=== PATIENT | male | born 1975 | race Caucasian/White ===

== ENCOUNTER 2016-10-06 21:10 | Inpatient (IN) | payer MEDICARE, MEDICAID ==
[~2016-10-06] VITALS: Ht 180.3 cm; Wt 84.2 kg
--- NOTE | ~2016-10-06 | OR ---
PATIENT'S NAME: REA ZENDEJAS [facility] AGE: 41 Y [address] ROOM: [place] [address] LOCATION: GPCU ADMIT DATE: 10/06/2016 OR/Procedure Report DISCHARGE DATE: FAMILY PHYSICIAN: PHYSICIAN, UNKNOWN ATTENDING PHYSICIAN: BRENNA HIGGINBOTHAM SURGEON: Leonides Cervantes MD BILLIARD PLAYER: DATE OF PROCEDURE: 10/07/2016 PREPROCEDURE DIAGNOSIS: Suspected left lower extremity necrotizing fasciitis. POSTPROCEDURE DIAGNOSIS: Suspected left lower extremity necrotizing fasciitis. PROCEDURE: Insertion of right internal jugular venous catheter. INDICATIONS: I was requested to place a central venous catheter in this 41- year-old male, who had suspected necrotizing fasciitis in his left lower extremity. The patient had poor peripheral venous access and at the time of my arrival, the only intravenous access available was a previously placed port. DESCRIPTION OF PROCEDURE: The patient had been induced under general anesthesia. He was placed in a slight Trendelenburg position with his head turned towards the left. A Site Rite monitor was used to identify the right internal jugular vein which was found to be several centimeters deep and of equal size to the adjacent carotid artery. Appropriate skin markings were made. The neck was then sterilely prepped and a full body sterile barrier drape applied. Using an 18-gauge seeker needle, the right internal jugular vein was cannulated on the first attempt. A guidewire was introduced through the needle without difficulty and the needle removed. A stab incision was then created, which was followed by the passage of a dilator. A 16 cm 8.5- [place] Zealander four-lumen catheter was then threaded over the guidewire to the depth of its hub and then the guidewire was removed. After the lumens of the catheter were flushed, the catheter was sewn into place and the sterile dressing was applied. The patient tolerated the procedure well. MD KEN LINN/bayron PATIENT'S NAME: CRISTIANA [facility] AGE: 41 Y [address] ROOM: [place] [address] [facility] ADMIT DATE: 10/06/2016 OR/Procedure Report DISCHARGE DATE: FAMILY PHYSICIAN: ROSALBA BRAMBILA ATTENDING PHYSICIAN: BRENNA HIGGINBOTHAM /[id number] d: 10/07/16809 t: 10/09/16 0932, OPERATIVE SUMMARY
--- NOTE | ~2016-10-06 | HP ---
PATIENT'S NAME: DANIAL ZENDEJAS [facility] AGE: 41 Y [address] ROOM: [place] [address] LOCATION: GPCU ADMIT DATE: 10/06/2016 History & Physical DISCHARGE DATE: FAMILY PHYSICIAN: PHYSICIAN, UNKNOWN ATTENDING PHYSICIAN: BRENNA HIGGINBOTHAM DATE OF SERVICE: CHIEF COMPLAINT: Left leg redness. HISTORY OF PRESENT ILLNESS: A 41-year-old gentleman, resident of [facility] [address] [facility] [place] with a past medical history of insulin-dependent diabetes, presented to primary care physician with a sore on his left 3rd toe almost one week ago, and he was started on antibiotics, but his condition got worse and that needed inpatient hospitalization at [facility]. He was treated there with intravenous antibiotics including vancomycin and Zosyn. During that course of the hospitalization, his creatinine bumped up to 3.1 and his white count was 34,000. A CAT scan was done today, which did show subcutaneous emphysema as well as possibility of an abscess in the left joint. He was transferred here for further medical care. On my encounter, Danial is awake and alert to himself. He denied having any pain, any headache, any trouble swallowing, any chest pain, any swelling in his leg. Due to mentally challenged, further review of systems could not be obtained. PAST MEDICAL HISTORY: Prader-Willi syndrome, insulin-dependent type 2 diabetes, hypertension, chronic hepatitis, gout, glaucoma, aniridia, hypertension, anxiety, and chronic gingivitis. PAST SURGICAL HISTORY: PowerPort placement and intra-ocular lens placement. REVIEW OF SYSTEMS: All other systems were reviewed and were negative, except what is mentioned in the HPI. CURRENT MEDICATIONS: Include: 1. Levemir 21 units in the morning, 25 in the evening. 2. Metformin 1000 mg twice daily. 3. Klonopin 0.5 mg twice daily. 4. Valtrex 1 g twice daily. 5. Allopurinol 300 mg daily. PATIENT'S NAME: DANIAL ZENDEJAS [facility] AGE: 41 Y [address] ROOM: [place] [address] LOCATION: GPCU ADMIT DATE: 10/06/2016 History & Physical DISCHARGE DATE: FAMILY PHYSICIAN: PHYSICIAN, UNKNOWN ATTENDING PHYSICIAN: BRENNA HIGGINBOTHAM 6. Amlodipine 10 mg daily. 7. Ferrous sulfate 325 mg daily. 8. Gemfibrozil 600 mg twice daily. 9. Lasix 40 mg daily. 10. Magnesium oxide 400 mg twice daily. 11. Mobic 7.5 mg twice daily. 12. Protonix 40 mg daily. 13. Actos 30 mg daily. 14. Surfak 240 mg twice daily. 15. Albuterol as needed. 16. Catapres 0.3 mg twice daily. 17. B12, 1000 mcg monthly. 18. Erythromycin ointment to both eyes at bedtime. 19. Fish oil 1000 mg twice daily. 20. DuoNeb 4 hours daily as needed. 21. Risperidone 1 mg twice daily. 22. Zoloft 100 mg twice daily. 23. BuSpar 10 mg two tablets three times daily. 24. Depakote 500 mg twice daily. 25. Humalog insulin per sliding scale. 26. MiraLax 17 g daily. ALLERGIES: THE PATIENT IS ALLERGIC TO COGENTIN AND IMIPRAMINE. THERE IS QUESTIONABLE HISTORY OF AUGMENTIN ALLERGY, BUT HE HAS BEEN GETTING TREATMENT WITH ZOSYN. SOCIAL HISTORY: He lives in [facility]. No smoking or alcohol use. FAMILY HISTORY: Could not be obtained because of the patient's mental condition. Family history is not relevant to the current disease process. PHYSICAL EXAMINATION: VITAL SIGNS: Blood pressure 153/81, 72, 16, afebrile. GENERAL: In no acute distress. Alert and oriented to himself only. NECK: No JVD, thyromegaly, lymphadenopathy. HEAD: Atraumatic, normocephalic. Eyes: Nonicteric. No . Oropharynx: Moist mucous membranes. CARDIOVASCULAR: S1 and S2. No murmurs, gallops, or rubs. LUNGS: Clear to auscultation bilaterally. ABDOMEN: Soft, nontender, and nondistended. Bowel sounds are present. EXTREMITIES: Left extremity showed diffuse severe erythema extending from the foot to above the knee. Multiple recent purulence and scabs noted. There is +3 extremity edema. As compared to the left, the right extremity did not PATIENT'S NAME: DANIAL ZENDEJAS [facility] AGE: 41 Y [address] ROOM: [address] [address] LOCATION: GPCU ADMIT DATE: 10/06/2016 History & Physical DISCHARGE DATE: FAMILY PHYSICIAN: PHYSICIAN, UNKNOWN ATTENDING PHYSICIAN: BRENNA HIGGINBOTHAM reveal any such findings. PSYCHIATRIC: Cannot be assessed at this point. SKIN: As mentioned above, extensive erythema noted in the left. Otherwise, no bruises noted. MUSCULOSKELETAL: Left knee joint is swollen, but not tender to touch or passive or active range of motion. LABORATORY DATA: Labs done on arrival to [facility] showed glucose of 136, BUN 14, creatinine 1.0, sodium 144, potassium 4.0, chloride 109, bicarb 26, calcium 9.8, albumin 2.4, phosphorus 3.1, anion gap of 39, and GFR greater than 30. A CAT scan of the lower extremity was done on 10/06/2016 at the outside facility that did show 1.5 x 7.7 x 8.1 peripherally enhancing gas and fluid collection in the subcutaneous tissue at the anterior aspect of the knee, likely representing abscess superficial to the patellar tendon and proximal tibia without intra-articular involvement. This is surrounding skin thickening, likely representing cellulitis. In addition, there is no evidence of intraarticular involvement, tendon tear, fracture, osteomyelitis, and no joint effusion noted. Culture report did not reveal any specific organism. Lab work from the outside facility on 10/05/2016 showed white count of 13, hemoglobin of 11, and platelets of 291. We are going to repeat these labs here. Lactic acid was also negative at the outside facility. ASSESSMENT: 1. Left leg cellulitis. 2. Insulin-dependent diabetes. 3. Hypertension. 4. Mental retardation. PLAN: We are going to admit this patient for IV antibiotics and continue with vancomycin and Zosyn. Limb elevation is critical in treating the cellulitis. Given he has subcutaneous emphysema now, he needs to proceed with the surgery urgently and Dr. Del Cid is going to do that. On evaluation for his preop risk of cardiovascular event, his RSRI score is 1, which predisposes him to 0.9% adverse cardiovascular events during the surgery. This is a low-risk surgery and has to be undertaken urgent. We would recommend going ahead and proceeding with the surgery per AHA guidelines. We will start him on Levemir 20 units b.i.d. along with sliding scale insulin. At this point, IV labetalol for blood pressure control. We will take over the care of this patient once the patient is back from the surgery. SCDs in the morning for DVT prophylaxis. We will follow along. PATIENT'S NAME: DANIAL ZENDEJAS [facility] AGE: 41 Y [address] ROOM: [address] [address] [facility] AD[facility] DATE: 10/06/2016 History & Physical DISCHARGE DATE: FAMILY PHYSICIAN: PHYSICIAN, UNKNOWN ATTENDING PHYSICIAN: BRENNA HIGGINBOTHAM Thank you for involving us in the care of this patient. BRENNA HIGGINBOTHAM MD ANJUM/modl /[id number] D: [id number] T: [id number] HISTORY & PHYSICAL
--- NOTE | ~2016-10-06 | OR ---
PATIENT'S NAME: REA ZENDEJAS [facility] AGE: 41 Y [address] ROOM: [place] [address] LOCATION: GPCU ADMIT DATE: 10/06/2016 OR/Procedure Report DISCHARGE DATE: FAMILY PHYSICIAN: PHYSICIAN, UNKNOWN ATTENDING PHYSICIAN: BRENNA HIGGINBOTHAM SURGEON: Adria Del Cid MD OPTICAL ENGINEERING TECHNICIAN: None. DATE OF PROCEDURE: 10/06/2016 PREOPERATIVE DIAGNOSES: 1. Left knee septic prepatellar bursitis. 2. Diffuse left lower extremity cellulitis. POSTOPERATIVE DIAGNOSES: 1. Left knee septic prepatellar bursitis. 2. Diffuse left lower extremity cellulitis. PROCEDURE PERFORMED: Irrigation and debridement of left knee septic prepatellar bursa. ANESTHESIA: General endotracheal anesthesia. ESTIMATED BLOOD LOSS: Less than 10 mL. TOURNIQUET TIME: 0 minutes. SPECIMEN: Aerobic and anaerobic cultures from septic prepatellar bursa fluid. COMPLICATIONS: None. INDICATION FOR PROCEDURE: Mr. Zendejas is a 41-year-old, cognitively impaired male, resident of [facility], who has been on intravenous antibiotics for a left lower extremity infection at an outlying institution ([facility]) since September 29. He is referred urgently this evening due to progression of his left lower extremity infection, whereas there was initial improvement on intravenous antibiotics (over the first several days), his condition has been worsening and fluctuance was noted anterior to the knee today. He was initially evaluated by a local orthopedic surgeon in [place] (Dr. Skaggs) who expressed significant concern over the appearance of the knee and leg and did not feel comfortable taking care of it locally. He was therefore transferred here urgently. He has been hemodynamically stable. Informed consent has been granted by the patient's mother (who is his power of staff attorney). She understands that this is a preliminary procedure and that further procedures may very well be warranted. Arrangements have also been made to take the patient from the operating room PATIENT'S NAME: REA ZENDEJAS [facility] AGE: 41 Y [address] ROOM: [place] [address] LOCATION: GPCU ADMIT DATE: 10/06/2016 OR/Procedure Report DISCHARGE DATE: FAMILY PHYSICIAN: PHYSICIAN, UNKNOWN ATTENDING PHYSICIAN: BRENNA HIGGINBOTHAM A to MRI (due to foot) to exclude underlying osteomyelitis and/or additional abscesses in the left leg (due to the extent of diffuse erythema, swelling, and recalcitrance to intravenous antibiotics). The patient's past medical history is significant for ldf-[id number] diabetes mellitus. DESCRIPTION OF PROCEDURE: The patient was positioned supine after administration of general endotracheal anesthesia. Photographs of the left knee and left calf were obtained. The left lower extremity was prepped and draped with vigilant sterile technique. A well-padded pneumatic tourniquet had been placed around the left proximal thigh, but this was not used during the operation. Examination under anesthesia demonstrated subcutaneous fluctuance directly anterior to the patellar tendon and patella. There was a 3 x 5 cm eschar over the medial aspect of the knee (not directly overlying the area of fluctuance). The area of fluctuance was confined to the prepatellar bursa region. There was no associated effusion. A 3 cm longitudinal midline incision was made directly over the center of fluctuance anterior to the patella. There was an abundant amount of purulent fluid with significant associated malodor. This fluid was sent for aerobic and anaerobic cultures. There was a large amount of amorphous debris within the prepatellar bursa. This was debrided bluntly. Palpation of the subcutaneous fluid collection demonstrated that it propagated approximately 4 cm medially and approximately 8 cm laterally (tracking subcutaneously toward the fibular head). The cavity was irrigated with several 100 mL of sterile saline containing bacitracin. There was significant malodor. The cavity was packed with 1/2-inch iodoform gauze and sterilely dressed with 4x4 gauze followed by ABD pads and an Mina wrap. The prepatellar bursa demonstrated no communication with the joint space. The patient was transported to the MRI unit in stable condition. MD GIULIA BRISENO/bayron /[id number] d: 10/07/16 0838 t: 10/20/16 0754, OPERATIVE SUMMARY
--- NOTE | ~2016-10-06 | OR ---
PATIENT'S NAME: RAE ZENDEJAS [facility] AGE: 41 Y [address] ROOM: [address] [address] [place] [facility] [place]MIT DATE: 10/06/2016 OR/Procedure Report DISCHARGE DATE: FAMILY PHYSICIAN: Charly Rainey ATTENDING PHYSICIAN: BRENNA HIGGINBOTHAM SURGEON: Andres Vega MD PLUGGER: DATE OF PROCEDURE: 10/10/2016 ADDENDUM: No skin or soft tissue was debrided at the time of this procedure. ANDRES VEGA MD JMW/modl /[id number] d: 11/05/16 0029 t: 11/10/16 0720, OPERATIVE SUMMARY
--- NOTE | ~2016-10-06 | OR ---
PATIENT'S NAME: REA ZENDEJAS [facility] AGE: 41 Y [address] ROOM: [place] [address] LOCATION: GPCU ADMIT DATE: 10/06/2016 OR/Procedure Report DISCHARGE DATE: FAMILY PHYSICIAN: Charly Rainey ATTENDING PHYSICIAN: BRENNA HIGGINBOTHAM SURGEON: Adria Del Cid MD PATTERN SETTER: DATE OF PROCEDURE: 10/10/2016 PREOPERATIVE DIAGNOSIS: Status post irrigation and debridement of left knee septic prepatellar bursitis with associated subcutaneous abscess. POSTOPERATIVE DIAGNOSIS: Status post irrigation and debridement of left knee septic prepatellar bursitis with associated subcutaneous abscess. PROCEDURE PERFORMED: Irrigation of left septic prepatellar bursa (subcutaneous anterior knee abscess) with application of closed suction device (wound VAC). ANESTHESIA: General. ESTIMATED BLOOD LOSS: Less than 5 mL. DRAINS: None. SPECIMEN: None. COMPLICATIONS: None. TOURNIQUET TIME: 0 minutes. INDICATION FOR PROCEDURE: Mr. Zendejas is a 41-year-old male who was taken back to the operating room for removal of packing and anticipated application of wound VAC for a septic prepatellar bursa. He has previously undergone a primary irrigation and debridement and the secondary packing change. This is his 3rd operation for this condition. Informed consent has been granted by his mother. DESCRIPTION OF PROCEDURE: The patient was positioned supine. General anesthesia was administered. The left lower extremity was prepped and draped with vigilant sterile technique after the dressing and packing was removed from the anterior aspect of the left knee. The anterior knee wound measures 3 cm in length by 1 cm wide. There was no residual purulence around the packing that was removed. There was a small amount of serosanguineous fluid in the prepatellar bursa. The subcutaneous cavity tracts 2 cm medially, 2 cm PATIENT'S NAME: REA ZENDEJAS [facility] AGE: 41 Y [address] ROOM: [place] [address] LOCATION: GPCU ADMIT DATE: 10/06/2016 OR/Procedure Report DISCHARGE DATE: FAMILY PHYSICIAN: Charly Rainey ATTENDING PHYSICIAN: BRENNA HIGGINBOTHAM distally, and 8 cm posterolaterally. The wound was irrigated with a 1000 mL of sterile saline containing bacitracin using a bulb syringe. There was no purulence. There was no residual malodor. A wound VAC sponge was placed into the cavity after digital palpation and direct visualization confirmed absence of communication of the subcutaneous cavity with the knee joint. Range of motion of the knee was 0-140 degrees of flexion. There was healthy granulation tissue at the anterior patella. The amount of swelling and erythema at the left calf continues to decrease. After packing the wound sponge into the cavity, the wound VAC system was applied. There were no complications. MD GIULIA BRISENO/bayron /[id number] d: 10/10/16 2356 t: 10/20/16 0758, OPERATIVE SUMMARY
--- NOTE | ~2016-10-06 | CON ---
PATIENT'S NAME: REA ZENDEJAS [facility] AGE: 41 Y [address] ROOM: [address] [address] LOCATION: [facility] ADMIT DATE: 10/06/2016 Consultation DISCHARGE DATE: FAMILY PHYSICIAN: Charly Rainey ATTENDING PHYSICIAN: BRENNA HIGGINBOTHAM DATE OF CONSULTATION: 11/03/2016 REFERRING PHYSICIAN: ANDRES VEGA MD REASON FOR CONSULT: Medication review. HISTORY OF PRESENT ILLNESS: The patient is a 41-year-old male with a history of intellectual disability, who was admitted to the hospital with septic prepatellar bursitis and left lower extremity cellulitis and presents with acute onset of confusion and agitation. The patient is a poor historian and denies all symptoms. He keeps asking to go home. Rest of history is from nursing reports and medical record reports which indicate that while the patient's baseline is unclear, he has been confused, agitated and combative throughout most of his admission. He is disoriented to time and place and does not know where he is most of the time. The patient is said to be improved since admission, but continues to have episodes of agitation and disorientation. He usually becomes increasingly agitated in the context of multiple requests to be discharged home. Yesterday, he reportedly threw his lunch stray at a member of staff. The patient has been receiving as needed haloperidol and lorazepam with good response. He was said to be on psychotropic polypharmacy prior to this admission with no clear indications and some of his medications have been discontinued. PAST MEDICAL HISTORY: The patient has a history of Prader-Willi syndrome with intellectual disability, insulin-dependent diabetes, chronic hepatitis, hypertension, gout, glaucoma, chronic gingivitis, and hernia repair. His previous psychiatric history is unclear. MEDICATIONS: The patient's medications include, 1. Cymbalta 60 mg twice daily. 2. Luvox 100 mg twice daily. 3. Depakote 500 mg t.i.d. 4. BuSpar 20 mg t.i.d. 5. Geodon 40 mg daily. 6. Clonazepam 0.5 mg at bedtime. 7. Clonazepam 1 mg twice daily. PATIENT'S NAME: REA ZENDEJAS [facility] AGE: 41 Y [address] ROOM: [place] [address] LOCATION: [facility] ADMIT DATE: 10/06/2016 Consultation DISCHARGE DATE: FAMILY PHYSICIAN: Charly Rainey ATTENDING PHYSICIAN: BRENNA HIGGINBOTHAM 8. Melatonin 6 mg at bedtime. 9. Haloperidol 2 mg q.4 hourly p.r.n. 10. Lorazepam 1 mg q.4 hourly p.r.n. 11. See medication list for rest of medications. ALLERGIES: IMIPRAMINE, AMOXICILLIN, BENZTROPINE. PAST FAMILY AND SOCIAL HISTORY: This is unclear since the patient is unable to give a history, although records revealed that he lives in [facility]. He has no history of substance abuse and his family history is unknown at this time. REVIEW OF SYSTEMS: Unable to complete. MENTAL STATUS EXAMINATION: The patient is in bed. He is cooperative, but does not engage in the interview. He makes poor eye contact. He is not agitated. His speech is slurred. His mood is irritable with appropriate affect. He has poverty of thought content and he is somewhat concrete. He is alert and oriented to person, somewhat to place, but not to time. His concentration is impaired and is difficult to assess his memory. He denies hallucinations and no delusions are noted at the interview. His intelligence is below average. His insight and judgment are impaired. DIAGNOSES: 1. Delirium due to multiple etiologies, resolving. 2. Moderate intellectual disability. PLAN: The patient remains on psychotropic polypharmacy. Recommend rechecking valproic acid level, taper and discontinue the Luvox and Geodon. Continue Cymbalta, haloperidol, and lorazepam. Monitor the patient for response and adverse effects and review as appropriate. Thank you for your consult. MD JASMEET MUELLER/bayron PATIENT'S NAME: REA ZENDEJAS [facility] AGE: 41 Y [address] ROOM: [place] [address] LOCATION: [facility] ADMIT DATE: 10/06/2016 Consultation DISCHARGE DATE: FAMILY PHYSICIAN: Charly Rainey ATTENDING PHYSICIAN: BRENNA HIGGINBOTHAM /[id number] d: 11/03/16 1100 t: 11/03/16 1456, CONSULTATION REPORT
--- NOTE | ~2016-10-06 | OR ---
PATIENT'S NAME: REA ZENDEJAS [facility] AGE: 41 Y [address] ROOM: [address] [address] LOCATION: [facility] ADMIT DATE: 10/06/2016 OR/Procedure Report DISCHARGE DATE: FAMILY PHYSICIAN: Charly Rainey ATTENDING PHYSICIAN: BRENNA HIGGINBOTHAM SURGEON: Andres Vega MD SMALL BUSINESS CONSULTANT: DATE OF PROCEDURE: 10/06/2016 ADDENDUM: This is an addendum to the operative note from October 06. It should be noted that the size of the subcutaneous area debrided, measured approximately 8 cm x 10 cm. ANDRES VEGA MD JMW/modl /[id number] d: 11/05/16 0021 t: 11/10/16 0716, OPERATIVE SUMMARY
--- NOTE | ~2016-10-06 | DS ---
PATIENT'S NAME: REA ZENDEJAS [facility] AGE: 41 Y [address] ROOM: [address] [place], [place] [address] LOCATION: GPCU ADMIT DATE: 10/06/2016 Discharge Summary DISCHARGE DATE: 11/11/2016 FAMILY PHYSICIAN: Charly Rainey ATTENDING PHYSICIAN: Merrill Ruiz PRINCIPAL DIAGNOSES: 1. Septic left prepatellar bursitis, status post I and D x2. 2. Left leg cellulitis. 3. Prader-Willi syndrome. 4. Type 2 diabetes. 5. Aspiration pneumonia. 6. Agitation. HOSPITAL COURSE: This is a 41-year-old male with a known history of Prader- Willi syndrome, and is a resident of [facility], presented with left leg pain, cellulitis, and was later found to have a septic left prepatellar bursitis with abscess. Surgical consultation was done and the patient was seen by Surgery from Ortho and had incision and drainage of the abscess site twice. The patient also had cellulitis of the left leg as well and this was treated with IV antibiotics during his hospital stay. The patient from the infection point of view has done well. The patient continues to have dressing changes and wound care of the site. The patient is now able to ambulate and apply pressure on his leg. The patient of note has walked 30 feet today. He is to follow up with Ortho in 1 week post discharge to follow up on wound site. The patient is known to be of an aspiration risk, was also treated for aspiration pneumonia during his hospital stay. The patient is to continue to exercise aspiration precautions and only use thickened liquids going forward. The patient had received IV Zosyn for treatment of aspiration pneumonia during his hospital stay and I will discharge him on 5 more days of Augmentin to finish the antibiotic course for this. As far as his diabetes, blood sugars have been labile during his hospital stay. At this point, I have simplified his insulin regimen to include 6 to 7 units of mealtime insulin in addition to his long-acting b.i.d. Levemir. The patient today is up in a chair, appears to be lethargic but it appears that this is from the long walk that he took today, which he has done very well in. The patient overall has done well and is ready for discharge back to [facility]. The patient will follow up with Dr. Del Cid and his primary care physician, Brigid within one week. PHYSICAL EXAMINATION: GENERAL: Patient is sleepy, however, is awake and alert, at his baseline. HEART: S1, S2. Regular rate and rhythm. CHEST: Coarse breath sounds with mild crackles at the bases. ABDOMEN: Soft, nontender, nondistended. EXTREMITIES: Without edema. Left leg dressing in place and is clean, dry, PATIENT'S NAME: REA ZENDEJAS [facility] AGE: 41 Y [address] ROOM: [place] [address] LOCATION: GPCU ADMIT DATE: 10/06/2016 Discharge Summary DISCHARGE DATE: 11/11/2016 FAMILY PHYSICIAN: Charly Rainey ATTENDING PHYSICIAN: Merrill Ruiz. MEDICATIONS: Per SEP. DISPOSITION: To [facility] and to follow up with Ortho and primary care physician in one week. Greater than 30 minutes were spent in discharge planning. MD ELISABETH HORTON/modl /[id number] d: 11/12/16 0650 t: 11/16/16 1419, DISCHARGE SUMMARY
--- NOTE | ~2016-10-06 | OR ---
PATIENT'S NAME: REA ZENDEJAS [facility] AGE: 41 Y [address] ROOM: [place] [address] LOCATION: [facility] ADMIT DATE: 10/06/2016 OR/Procedure Report DISCHARGE DATE: FAMILY PHYSICIAN: Charly Rainey ATTENDING PHYSICIAN: BRENNA HIGGINBOTHAM SURGEON: Adria Del Cid MD STRATEGIC PLANNING ANALYST: DATE OF PROCEDURE: 10/08/2016 ADDENDUM: It should be noted that no skin was debrided. A 5 x 3 cm region of semi-organized hematoma was debrided. MD GIULIA BRISENO/bayron /[id number] d: 11/05/16 0027 t: 11/10/16 0718, OPERATIVE SUMMARY
--- NOTE | ~2016-10-06 | CON ---
PATIENT'S NAME: REA ZENDEJAS [facility] AGE: 41 Y [address] ROOM: [place] [address] LOCATION: GPCU ADMIT DATE: 10/06/2016 Consultation DISCHARGE DATE: FAMILY PHYSICIAN: Charly Rainey ATTENDING PHYSICIAN: BRENNA HIGGINBOTHAM DATE OF CONSULTATION: 10/09/2016 REFERRING PHYSICIAN: Dr. Mena. REASON FOR CONSULTATION: Groin rash. HISTORY OF PRESENT ILLNESS: This is a 41-year-old male patient who was admitted to the [facility] with left lower extremity cellulitis. I am familiar with the patient as I did see him down in outpatient [facility] on 09/24/2016. At that time, I was treating a left third toe diabetic foot ulcer with Iodosorb gel. That day, the patient was noted to have left lower extremity cellulitis and knee edema. I started him on a course of Keflex and performed an x-ray to rule out effusion or fracture. The patient was admitted to [facility] on 10/06/2016 with left knee septic prepatellar bursitis and left lower extremity cellulitis. He has undergone 2 left knee I and D's by Dr. Del Cid. The patient is currently being followed by ID, he is on clindamycin, Zosyn, and vancomycin. He has a significant history of Prader-Willi syndrome, type 2 diabetes mellitus, essential hypertension, GERD, and mood swings. He lives at [facility]. PAST MEDICAL HISTORY: Type 2 diabetes mellitus with peripheral neuropathy and insulin use, last hemoglobin A1c on August 21, 2016 was 6.4%; Prader-Willi syndrome; mentally handicapped; essential hypertension; glaucoma; GERD; mood swings; obsessive- compulsive disorder; anxiety; and gout. PAST SURGICAL HISTORY: None noted. FAMILY HISTORY: None noted. The patient is unable to report. SOCIAL HISTORY: The patient currently resides at [facility]. Per previous records, he is a nonsmoker and a nondrinker. PATIENT'S NAME: REA ZENDEJAS [facility] AGE: 41 Y [address] ROOM: [place] [address] LOCATION: GPCU ADMIT DATE: 10/06/2016 Consultation DISCHARGE DATE: FAMILY PHYSICIAN: Charly Rainey ATTENDING PHYSICIAN: BRENNA HIGGINBOTHAM ALLERGIES: AUGMENTIN, COGENTIN, AND TOFRANIL. CURRENT MEDICATIONS: Pertinent to this dictation: 1. Clindamycin IV. 2. Zosyn. 3. Vancomycin. Please refer to the medication administration record for further details. REVIEW OF SYSTEMS: Unable to complete due to the patient's mental status and lethargy. PHYSICAL EXAMINATION: VITAL SIGNS: Temperature 97.8, pulse 69, respirations 18, blood pressure 140/72, pulse oximetry 99%. Height 5 feet 11 inches and weight 101.2 kg. GENERAL: The patient is lethargic, sleeping. Difficult to arouse. He was previously given Haldol. HEENT: Head: Normocephalic, atraumatic. NECK: Supple. RESPIRATIONS: Even and unlabored. ABDOMEN: Soft and nontender. EXTREMITIES: +2 pedal pulses to the right foot. No edema noted. To left lower extremity, +2 edema noted. Bulky Mina wrap intact to left knee. Left lower extremity is red with significant yellow crusting and dryness. SKIN: Left third toe has a callus buildup, brown staining from Iodosorb gel. Area is currently closed. Capillary refill intact. Buttocks intact. Groin folds have a red rash with satellite lesions. Heels intact. Intact scabs to upper right chest. LABORATORY DATA: White blood cell count 9.2, hemoglobin 10.1, hematocrit 32.4, platelets 256. Sodium 146, potassium 4.1, chloride 112, bicarb 29, BUN 14, creatinine 0.8, glucose 150, albumin 2.2. Blood cultures are no growth to date. Wound cultures, no organisms observed. ASSESSMENT AND PLAN: Again, this is a 41-year-old male patient who was admitted to [facility] with left lower leg cellulitis. He was found to have septic prepatellar bursitis and he has undergone 2 I and Ds of his left knee. He has a significant history of Prader-Willi syndrome and type 2 diabetes mellitus. I am familiar with the patient as I saw him at [facility] on 09/24/2016. 1. 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 ROOM: [id number] [place], [place] [address] [facility]ATION[facility] ADMIT DATE: 10/06/2016 Consultation DISCHARGE DATE: FAMILY PHYSICIAN: Charly Rainey ATTENDING PHYSICIAN: BRENNA HIGGINBOTHAM. Area is currently callused. The patient can follow up with the [facility] on discharge. Currently, this area is not a priority compared to his other health concerns. 2. Left lower leg cellulitis. The patient is on IV antibiotics per Infectious Disease. I instructed nursing to keep the patient's left lower extremity elevated to waist level or higher at all times. 3. Left knee septic prepatellar bursitis, status post I and D x2. Bulky dressing intact to left knee. IV antibiotics. Ortho on board. 4. Candidiasis to groin folds. I will prescribe nystatin t.i.d. x10 days. Most likely, secondary to antibiotic therapy. A probiotic might be helpful. I would like to thank Dr. Mena for this consultation. JESSICA SINGH APRN FOR MD MICHAELA HEATH/bayron /[id number] d: 10/09/16 2223 t: 11/17/16 1937, CONSULTATION REPORT
--- NOTE | ~2016-10-06 | CON ---
PATIENT'S NAME: REA ZENDEJAS [facility] AGE: 41 Y [address] ROOM: [id number] [place], [place] [address] LOCATION: GPCU ADMIT DATE: 10/06/2016 Consultation DISCHARGE DATE: FAMILY PHYSICIAN: Charly Rainey ATTENDING PHYSICIAN: BRENNA RUIZ DATE OF CONSULTATION: 10/07/2016 REFERRING PHYSICIAN: ANDRES VEGA MD INFECTIOUS DISEASE CONSULTATION REFERRING PHYSICIAN: Brenna Ruiz MD. REASON FOR CONSULTATION: Severe left lower extremity cellulitis and septic prepatellar bursitis. HISTORY OF PRESENT ILLNESS: This is a 41-year-old gentleman with history of Prader-Willi syndrome and diabetes, who is transferred to [facility] for severe left lower extremity infection. Noted that, the patient had a left third toe chronic diabetic ulcer, has been treated and followed by wound care team. On September 24, 2016, it showed signs of infection and started on Keflex, however, not improving, so the patient then was started on IV antibiotics, IV vancomycin and Zosyn from September 29, 2016. Initially improved but now he is getting worse, and then his knee, thigh, and lower extremity had acquired an infection with some skin sloughing and eschar, so the patient was transferred to [facility], seen by Ortho, and then CT scan showed subcutaneous emphysema as well as possibility of abscess in the left joint. The patient had an emergent I and D done today, showed that quite significant prepatellar bursitis and abscess, status post I and D, but noted that there was no connection with knee joint. Then, the patient had an MRI done of the left lower extremity, which is still pending. He is currently on IV vancomycin and Zosyn. ID consultation is requested for antibiotic management. The patient is confused, so cannot obtain detailed history. PAST MEDICAL HISTORY: Prader-Willi syndrome, diabetes, hypertension, hepatitis, gout, glaucoma, hypertension. PAST SURGICAL HISTORY: PowerPort placement. CURRENT MEDICINES: IV Zosyn and Vancomycin antibiotic quintanilla. PATIENT'S NAME: REA ZENDEJAS [facility] AGE: 41 Y [address] ROOM: [id number] [place], [place] [address] LOCATION: GPCU ADMIT DATE: 10/06/2016 Consultation DISCHARGE DATE: FAMILY PHYSICIAN: Charly Rainey ATTENDING PHYSICIAN: BRENNA RUIZ ALLERGIES: ALLERGIC TO COGENTIN AND IMIPRAMINE. SOCIAL HISTORY: No smoking or alcohol. FAMILY HISTORY: Noncontributory. REVIEW OF SYSTEMS: Unobtainable because the patient is confused. PHYSICAL EXAMINATION: VITAL SIGNS: Blood pressure 172/96, pulse rate 87, respirations 18, temperature 97.4. No fever since admission. GENERAL: Confused. HEENT: Conjunctivae pink. Sclerae not icteric. NECK: Supple. LUNGS: Clear to auscultation bilaterally. HEART: Regular rhythm and rate. ABDOMEN: Bowel sounds positive. No tenderness or rebound tenderness. BACK AND EXTREMITIES: Left lower extremity, ignacio area is quite a necrotic skin and also erythema and warmth. Knee is dressed and also erythema noted on the left thigh area with some warmth too. SKIN: No general rash noted. LABORATORY DATA: White blood cell 13.3, hemoglobin 10.7, platelet 280. Chemistry: BUN 17, creatinine 1.0. Left knee OR culture, Gram staining, no organisms seen. Culture pending. On October 07, 2016, left lower extremity ankle and extremity MRI taken but reading pending. On october 07, 2016, chest x-ray, no acute illness. ASSESSMENT AND PLAN: This is a 41-year-old gentleman with diabetes, who presented with severe left lower extremity cellulitis and questionable necrotizing fasciitis and also left septic prepatellar bursitis, status post I and D. MRI done, still pending. The patient's at least vital signs are stable. No fever noted but leukocytosis noted. Clinically, there is quite cellulitis with some skin necrosis noted too. RECOMMENDATIONS: We will continue IV Zosyn and vancomycin, but we will add IV clindamycin 900 q.8 hours. Further I and D per ortho, and we will check blood culture x2. ID PATIENT'S NAME: REA ZENDEJAS [facility] AGE: 41 Y [address] ROOM: [id number] [place], [place] [address] LOCATION: GPCU ADMIT DATE: 10/06/2016 Consultation DISCHARGE DATE: FAMILY PHYSICIAN: Charly Rainey ATTENDING PHYSICIAN: BRENNA RUIZ will see in 1 week. MD ROGELIO GANNON/bayron /[id number] d: 10/07/16 2203 t: 10/08/16 0910, CONSULTATION REPORT
--- NOTE | ~2016-10-06 | OR ---
PATIENT'S NAME: REA ZENDEJAS [facility] AGE: 41 Y [address] ROOM: [place] [address] LOCATION: GPCU ADMIT DATE: 10/06/2016 OR/Procedure Report DISCHARGE DATE: FAMILY PHYSICIAN: Charly Rainey ATTENDING PHYSICIAN: BRENNA HIGGINBOTHAM SURGEON: Adria Del Cid MD DIRECTOR OF CLINICAL SERVICES: None. DATE OF PROCEDURE: 10/08/2016 PREOPERATIVE DIAGNOSIS: Status post irrigation and debridement of septic left prepatellar bursa. POSTOPERATIVE DIAGNOSIS: Status post irrigation and debridement of septic left prepatellar bursa. PROCEDURE PERFORMED: Repeat irrigation and debridement of septic left prepatellar bursa with packing change of left anterior knee wound. ANESTHESIA: General endotracheal anesthesia. ESTIMATED BLOOD LOSS: Less than 10 mL. SPECIMEN: Culture of prepatellar bursa. TOURNIQUET TIME: 0 minutes. INDICATION FOR PROCEDURE: Mr. Zendejas is a 41-year-old male with Prader-Willi syndrome, who underwent irrigation and debridement of a septic left knee prepatellar bursa earlier this week. The wound was left open and packed with iodoform gauze at the time of the previous procedure. The patient was taken back to the operating room presently for secondary irrigation and debridement. An MRI has been obtained in the meantime which suggested the potential for an additional posterolateral subcutaneous area of loculated fluid. Informed consent has been granted by the patient's mother. She understands that further irrigation and debridement and additional packing changes may be necessary. Informed consent granted. DESCRIPTION OF PROCEDURE: The patient was positioned supine after administration of general endotracheal anesthesia. The dressing was removed from the left knee. Packing was removed. The packing was partially saturated with purulent fluid. The amount of erythema and swelling of the left knee and left calf had decreased significantly. The left lower extremity was prepped and draped with vigilant sterile technique. No tourniquet was used. Digital palpation of the prepatellar bursa cavity again demonstrated that the cavity tracked posterolaterally. Digital palpation was utilized to be certain that PATIENT'S NAME: REA ZENDEJAS [facility] AGE: 41 Y [address] ROOM: [place] [address] LOCATION: GPCU ADMIT DATE: 10/06/2016 OR/Procedure Report DISCHARGE DATE: FAMILY PHYSICIAN: Charly Rainey ATTENDING PHYSICIAN: BRENNA HIGGINBOTHAM there were no areas of loculated fluid. There was no residual malodor. Semiorganized hematoma was debrided. No skin was debrided. The subcutaneous fluid cavity (including areas where it tracked medially, laterally, posteriorly, distally laterally) were irrigated with several 100 mL of sterile saline containing bacitracin. The wound was subsequently packed with half- inch iodoform gauze. The wound was dressed with 4 x 4 gauze, followed by ABD pads, and an Mina wrap. There were no complications. MD GIULIA BRISENO/bayron /[id number] d: 10/09/16 0200 t: 10/20/16 0756, OPERATIVE SUMMARY
--- NOTE | ~2016-10-06 | CON ---
PATIENT'S NAME: REA ZENDEJAS [facility] AGE: 41 Y [address] ROOM: [id number] [place], [place] [address] LOCATION: GPCU ADMIT DATE: 10/06/2016 Consultation DISCHARGE DATE: FAMILY PHYSICIAN: PHYSICIAN, UNKNOWN ATTENDING PHYSICIAN: BRENNA HIGGINBOTHAM REFERRING PHYSICIAN: ANDRES VEGA MD HISTORY OF PRESENT ILLNESS: Mr. Zendejas is a 41-year-old male, [facility] resident with Prader-Willi syndrome, who is transferred from [facility] due to progression of a left lower extremity infection. The patient was admitted to [facility] on approximately September 29 with left knee swelling and erythema involving the left knee and left ignacio. It should be noted that history is obtained via Moreno Rainey PA-C (who has been caring for the patient at [facility]) as well as via the patient's mother, Lucy. Lucy's telephone number is . Lucy last saw her son approximately 3 weeks ago, at which point she noted swelling at his left knee. She states that he has arthritis in the knee and that she encouraged his caregivers at [facility] to "take him in to get a shot." He was reportedly taken to the hospital a few days later and immediately admitted for intravenous antibiotics by Moreno Rainey PA-C. Moreno informs me that the patient's left lower extremity erythema and white blood cell count steadily improved during the first week of his admission. However, he states that the patient has developed a breakthrough erythema and swelling (particularly at the knee) over the past few days. Moreno noted significant fluctuance at the anterior aspect of the left knee today. He attempted to further evaluate this with an MRI, but there was significant motion artifact (due to the patient's baseline compromised mental status). A CT scan was obtained instead. The CT scan reportedly demonstrated no effusion, but there was a large amount of prepatellar swelling including prepatellar gas. Moreno had attempted to aspirate the prepatellar fluctuant area prior to the CT scan, but only bloody fluid was obtained. Lucy states that there was no known precipitating trauma but that Rea falls frequently. He is legally blind and uses a walker at baseline. She informs me that Rea has an extremely high pain tolerance. ACTIVE MEDICAL PROBLEMS: Include Prader-Willi syndrome and kic-viwvwfg-jedsdcklz diabetes mellitus. REVIEW OF SYSTEMS: Moreno informs me that the patient has been demonstrating no evidence of septicemia. PHYSICAL EXAMINATION: PATIENT'S NAME: REA ZENDEJAS [facility] AGE: 41 Y [address] ROOM: [place] [address] LOCATION: GPCU ADMIT DATE: 10/06/2016 Consultation DISCHARGE DATE: FAMILY PHYSICIAN: PHYSICIAN, UNKNOWN ATTENDING PHYSICIAN: BRENNA HIGGINBOTHAM GENERAL: The patient is alert, but his cognitive status precludes his ability to provide any significant history. EXTREMITIES: He actively dorsiflexes and plantarflexes his left ankle to command with no evident discomfort. There is a significant amount of edema throughout the left foot, but there is no erythema, tenderness, or fluctuance at the left foot. There is erythema and edema throughout the left ignacio and calf, but there is no fluctuance. There is a Telfa gauze dressing adherent to the skin of the posterior calf, but there is no full thickness skin necrosis. There is extensive circumferential dry skin flaking off the ignacio and calf. There is extensive subcutaneous fluctuance at the anterior aspect of the left knee with an approximately 3 x 5 cm eschar at the medial patella. There is no active drainage. There is moderate edema at the left thigh, but no significant tenderness or fluctuance at the left thigh. Dorsalis pedis and posterior tibial pulses are both positive by Doppler on the left. RADIOGRAPHS: Plain radiographs of the left knee, tibia, and fibula are pending. I have also ordered a MRI (under anesthesia) of the left knee and calf (to exclude underlying osteomyelitis). IMPRESSION: Septic prepatellar bursitis, left knee with associated skin necrosis. Potential underlying osteomyelitis and/or septic arthritis. Diffuse cellulitis of left calf. Lob-libdxmp-aybwpplbf diabetes mellitus. RECOMMENDATIONS: Imaging studies as specified above. We will take the patient to the operating room (as soon as he is cleared to do so by the Internal Medicine team) for incision, drainage, irrigation, and debridement of the prepatellar bursitis. Empiric antibiotics will be continued. I have discussed risks, benefits, limitations, and alternatives to this procedure with the patient's mother (who is his power of patent prosecution attorney) and informed consent has been granted. She understands that this is anticipated to be the first in a series of several operations. We will consider placing a wound VAC. Cultures will be obtained, and antibiotics will be adjusted accordingly. All the patient's mother's questions and concerns were answered to her satisfaction. ANDRES VEGA MD PATIENT'S NAME: REA ZENDEJAS [facility] AGE: 41 Y [address] ROOM: [place] [address] [facility]: 10/06/2016 Consultation DISCHARGE DATE: FAMILY PHYSICIAN: PHYSICIAN, UNKNOWN ATTENDING PHYSICIAN: BRENNA HIGGINBOTHAM/bayron /[id number] d: 10/07/16 0538 t: 10/20/16 0751, CONSULTATION REPORT
[~2016-10-06 21:10] MED LIST: BISAC-EVAC10 MG R; BUSPIRONE HCL10 MG PO; CATAPRES0.3 MG PO; COLACE100 MG PO; CYMBALTA60 MG PO; DEPAKOTE DELAY500 MG PO; ERYTHROMYCIN 0.5% OPHTH; FEOSOL325 MG PO; FISH OIL 1,0001 EAC1 PO; GEODON80 MG PO; GLUCOPHAGE500 MG; GLUCOSE15 GM/59 M PO; HUMALOG100 UNIT/1 SUB-Q; KLONOPIN0.5 MG PO; LASIX20 MG; LEVEMIR100 UNIT/1 SUB-Q; LOPID600 MG PO; LUVOX50 MG; MELATONIN5 M2 PO; MIRALAX17 GM PO; MOBIC7.5 MG; NORVASC10 MG PO; OXYGEN M-15; PERIDEX15 ML PO; PRED FORTE 1%5 ML OPHTH; PREVIDENT 500051 GM DT; PROTONIX40 MG PO; REFRESH LIQUIGE30 ML OPHTH; ROBITUSSIN DM120 ML PO; TERBINAFINE15 GM TOP; THERAGRAN-M1 TAB PO; TRIAMCINOLONE DT; TYLENOL325 MG PO; ULTRAM50 MG PO; XOPENEX1.25 MG/3 INH; ZYLOPRIM300 MG PO; [UNRECOGNIZED DRUG - OTHER] DT; [UNRECOGNIZED DRUG - OTHER] PO
[2016-10-06 22:52] LABS: ALBUMIN 2.4 gm/dL (3.5-5.0); BLOOD UREA NITROGEN 14 mg/dL (6-24); CALCIUM 9.8 mg/dL (8.5-10.5); CHLORIDE 109 mMol/L (96-110); CO2 26 mMol/L (22-32); PHOSPHORUS 3.1 mg/dL (2.5-4.9); SODIUM 144 mMol/L (135-145)
[2016-10-06 22:53] LABS: ESTIMATED GFR (MDRD EQUATION) > 60
[2016-10-06] MEDS ORDERED: LOVENOX 4040 MG/0.4 SUB-Q (23:01)
[2016-10-06] MEDS ORDERED: LEVEMIR100 UNIT/1 SUB-Q (23:08)
[2016-10-06] MEDS ORDERED: ATIVAN 1 MG1 MG SL (23:28)
[2016-10-06] MEDS ORDERED: LORAZEPAM IV (23:29)
[2016-10-06] MEDS ORDERED: VANCOMYCIN1 GM IV (23:31)
[2016-10-06] MEDS ORDERED: ZOSYN3.375 GM IV (23:32)
[2016-10-06 23:34] LABS: BASOPHIL # 0.1 K/uL (0.0-0.2); BASOPHIL % 0.6 %; EOSINOPHIL # 0.2 K/uL (0.0-0.5); EOSINOPHIL % 0.9 %; HEMOGLOBIN 11.3 g/dL (12.0-17.0); IMMATURE GRANULOCYTE # 0.1 K/uL (0.0-0.3); IMMATURE GRANULOCYTE % 0.4 %; LYMPHOCYTE # 2.8 K/uL (0.8-4.0); LYMPHOCYTE % 16.5 %; MCH 27.6 pg (27.0-34.0); MCHC 31.4 gm/dL (32.0-36.5); MONOCYTE # 1.6 K/uL (0.0-1.0); MONOCYTE % 9.6 %; MPV 11.6 fl (9.4-12.4); NEUTROPHIL # (ANC) 12.3 K/uL (1.4-9.0); NRBC % 0 /100WBC (0-0.00); RBC 4.09 M/uL (4.00-6.00); RDW-CV 15.3 % (11.9-14.6)
[2016-10-06 23:36] LABS: PLATELET COUNT 293 K/uL (150-450); WBC 17.1 K/uL (4.0-11.0)
[2016-10-06] MEDS ORDERED: HEPARIN LO IV (23:36)
[2016-10-06] MEDS ORDERED: HALDOL5 MG/1 ML IV (23:38)
[2016-10-06] MEDS ORDERED: DEXTROSE 50%50 ML IV (23:39)
[2016-10-06] MEDS ORDERED: GLUCAGON 1 MG PE1 MG SUB-Q (23:47)
--- NOTE | 2016-10-07 04:25 | NUR ---
THE PATIENT RESIDES AT [facility]. A FEW WEEKS AGO HE APPEARED TO HAVE WHAT WAS A DIABETIC FOOT ULCER ON HIS 3RD TOE OF THE LEFT FOOT. HE WAS TREATED FOR THIS WITH ANTIBIOTICS. HE THEN DEVELOPED LEFT LOWER LEG CELLULITIS AND WAS TREATED WITH KEFLEX. AFTER A FEW DAYS HE DID NOT IMPROVED. HIS LEG DEVELOPED AN ABCESS AROUND THE KNEE AND HAS MULTIPLE OPEN SORES WOUNDS AND EXCORIATION ALONG WITH REDNESS AND +4 EDEMA. HE WAS TAKEN DIRECTLY TO THE OR WHERE AN I&D WAS PERFORMED WITH CULTURES TAKEN BY DR. VEGA. HE ARRIVED ON PCU AT 0330 VIA CART. A/0 TO ONLY PERSON DUE TO COGNITIVE IMPAIRMENT. VSS. LEG ELEVATED WITH JACKLYN WRAPS COVERING OTHER DRESSINGS OVER WOUND. VANCO AND ZOSYN INFUSING. HX: PRADER-WILLI SYNDROME, DIABETES, HTN, CHRONIC HEPATITIS, GOUT , GLAUCOMA, ANIRIDIA, HTN, ANXIETY.
--- NOTE | 2016-10-07 07:25 | NUR ---
Significant Event: PATIENT HAS BECOME MORE ALERT THE SHIFT HAS PROGRESSED. HE CAN EXPRESS HIS WISHES NOW. LEFT LOWER EXTREMITY REMAINS ELEVATED. ZOSYN INFUSING, HE DENIES PAIN AT THIS TIME AND CAN MOVE ALL EXTREMETIES Follow up:
[2016-10-07 07:51] LABS: BASOPHIL # 0.1 K/uL (0.0-0.2); BASOPHIL % 0.5 %; EOSINOPHIL # 0.1 K/uL (0.0-0.5); EOSINOPHIL % 0.5 %; HEMATOCRIT 34.9 % (37.0-53.0); HEMOGLOBIN 10.7 g/dL (12.0-17.0); IMMATURE GRANULOCYTE % 0.2 %; LYMPHOCYTE # 1.9 K/uL (0.8-4.0); LYMPHOCYTE % 14.1 %; MCH 27.4 pg (27.0-34.0); MCHC 30.7 gm/dL (32.0-36.5); MCV 89.5 fl (83.0-98.0); MONOCYTE % 7.1 %; MPV 11.3 fl (9.4-12.4); NEUTROPHIL # (ANC) 10.3 K/uL (1.4-9.0); NEUTROPHIL % 77.6 %; NRBC % 0 /100WBC (0-0.00); PLATELET COUNT 280 K/uL (150-450); RDW-CV 15.5 % (11.9-14.6); WBC 13.3 K/uL (4.0-11.0)
[2016-10-07 08:08] LABS: ANION GAP 13.4 (10.0-19.0); BLOOD UREA NITROGEN 17 mg/dL (6-24); CALCIUM 9.9 mg/dL (8.5-10.5); CHLORIDE 111 mMol/L (96-110); CO2 26 mMol/L (22-32); ESTIMATED GFR (MDRD EQUATION) > 60; POTASSIUM 4.4 mMol/L (3.7-5.1)
[2016-10-07 08:09] LABS: SODIUM 146 mMol/L (135-145)
[2016-10-07] MEDS ORDERED: MELATONIN1 MG PO (09:49)
[2016-10-07] MEDS ORDERED: SODIUM CHLORID250 M1 IV (09:49)
[2016-10-07] MEDS ORDERED: LORAZEPAM2 MG/1 M1 IV (09:50)
[2016-10-07] MEDS ORDERED: HEPARIN LO10 UNIT/1 IV (09:50)
[2016-10-07] MEDS ORDERED: PRED FORTE 1%5 ML OPHTH (09:51)
[2016-10-07] MEDS ORDERED: SALINE IV ×2 (09:51→09:52)
--- NOTE | 2016-10-07 14:47 | NUR ---
Stopped by Danial's room, he was sleeping so I didn't go in and bother him. I did review his chart, saw that he resides at [facility] in [place]. He will return there when ready for discharge. At this time, ID was consulted and he was started on 3 IV Abxs so he will be here for a bit. I did place him on the TCU list in anticipation that he might not need to be on acute care the whole time just for his IV Abxs needs. Will continue to follow and assist.
--- NOTE | 2016-10-07 16:45 | NUR ---
Significant Event: Patient is developmentally delayed and A&O to person only. Speech garbled and difficult to understand at times, but responds to voice and commands. Patient had MRI with general anesthesia this AM and drowsy upon return. He became agitated once anesthesia wore off and yelled out often, stating that he wanted to "go home". Scheduled Ativan administered. Patient is a heavy 2 person assist with gaibelt. Patient voids per urinal, with a smear BM. VS: HR 80's, SBP 140-180's, sats above 95% on room air. Slightly tachypneic. Redness noted on left medial thigh and bilateral groin creases in addition to cellulitis of left lower leg. ID consulted today. Clindamycin added to antibiotic regimine. Follow up: Continue as per plan of care. Continue IV antibiotics. To follow-up with ID in 1 week.
--- NOTE | 2016-10-08 00:34 | NUR ---
Patient resting since shift change. up to see patient written orderes for I&D . Patient NPO after breakfast. No changes in assessments. L)lower extremity red and warm to touch. IV ATB continued. IV access per R)quad-luman IJ and R)chest port. Voids per urinal but can be incontinent at times. Permits on chart for I&D. Plan is for patient to go to [facility] Wednesday if beds open per MD note.
[2016-10-08 04:30] LABS: BASOPHIL # 0.1 K/uL (0.0-0.2); EOSINOPHIL # 0.2 K/uL (0.0-0.5); EOSINOPHIL % 2.6 %; HEMATOCRIT 33.4 % (37.0-53.0); HEMOGLOBIN 10.1 g/dL (12.0-17.0); IMMATURE GRANULOCYTE % 0.2 %; LYMPHOCYTE # 2.7 K/uL (0.8-4.0); LYMPHOCYTE % 29.1 %; MCH 27.1 pg (27.0-34.0); MCHC 30.2 gm/dL (32.0-36.5); MCV 89.5 fl (83.0-98.0); MONOCYTE % 10.8 %; MPV 11.2 fl (9.4-12.4); NEUTROPHIL # (ANC) 5.2 K/uL (1.4-9.0); NEUTROPHIL % 56.3 %; NRBC % 0 /100WBC (0-0.00); PLATELET COUNT 256 K/uL (150-450); RBC 3.73 M/uL (4.00-6.00); RDW-CV 15.3 % (11.9-14.6); WBC 9.2 K/uL (4.0-11.0)
[2016-10-08 04:35] LABS: ALBUMIN 2.2 gm/dL (3.5-5.0); ALK PHOS 100 IU/L (33-138); AST 9 IU/L (10-40); BLOOD UREA NITROGEN 14 mg/dL (6-24); CALCIUM 9.7 mg/dL (8.5-10.5); CHLORIDE 112 mMol/L (96-110); CO2 29 mMol/L (22-32); CREATININE 0.8 mg/dL (0.6-1.3); ESTIMATED GFR (MDRD EQUATION) > 60; MAGNESIUM 1.8 mg/dL (1.3-2.6); PHOSPHORUS 2.5 mg/dL (2.5-4.9); POTASSIUM 4.1 mMol/L (3.7-5.1); TOTAL BILIRUBIN 0.3 mg/dL (0.0-1.5)
[2016-10-08 04:44] LABS: ALT < 10 IU/L (12-78); ANION GAP 9.1 (10.0-19.0); SODIUM 146 mMol/L (135-145)
--- NOTE | 2016-10-08 04:52 | NUR ---
Significant Event: Alert, oriented to self, believes he is in/going to [place], cooperative with cares, patient wants someone in room frequently to talk with him, SBP 130s/80s, RA, afebrile, IV fluids to R)IJ, port with good blood return, dressing changed to IJ, incontinent of urine once, mostly able to express needs, yells out at times, L) leg dressing c.d.i Follow up: I&D of L) knee today, NPO after breakfast, back to [place] Wednesday?
--- NOTE | 2016-10-08 15:12 | NUR ---
1130 Received consult to help with philomena TREJO for continued IV Abxs needs. I phoned over to [facility], talked with Monique. She states that they do have open male beds and would be happy to take a look at him. Formal referral was faxed, let her know he would be ready tomorrow if they could accept. 1515 Call to [facility] to make sure they got the fax and see if they would be able to accept tomorrow. Talked with Christina and she states that they did get the fax and took it to the team to review but they are unable to accept until at least Wednesday due to bed/staffing ratio. She asks that I call back on Wednesday and send an update at that time and then they might be able to accept him. Updated GANGA Peguero to this so she was aware. Will continue to follow and assist.
--- NOTE | 2016-10-08 17:23 | NUR ---
Significant Event: Patient disoriented to time and place most of the time. Can become very agitated very quickly because he does not understand why he has to be and cannot go home. Up with max 2 assist, walker, and gaitbelt to pivot to chair. SBP 160-180's this A.M. Gave IV Hydralazine x 1 and started PO metoprolol. LR changed to TKO rate. SBP 120-150's since. R)IJ quad lumen central line. Cathflowed white port and brown port this shift. Still do not have blood return in brown port yet. R)chest port with good blood return. Changed all caps and tubing this shift. Gave PRN Ativan on top of scheduled ativan once this morning due to increased agitation. Calls out and screams frequently. Does not use call light, but able to express needs. NPO after breakfast for I & D of left knee with Dr. Del Cid this evening. Left floor at 1720. No changes to left leg. Continues to excoriated, peeling, and edematous. Denies pain, but receives scheduled pain meds. ACHS accu checks. Follow up: Continue as per plan of care. Continue IV antibiotics.
--- NOTE | 2016-10-09 05:04 | NUR ---
Significant Event: ORIENTED TO PERSON AND PLACE. HE HAS BEEN PLEASANT AND COOPERATIVE THIS EVENING. YELL'S OUT OCCASIONALLY BUT NOT VERY OFTEN. VERBAL REASSURANCE PROVIDED AND REALLY SEEMS TO HELP. 1 PRN ATIVAN EPHRAIMN AT 0202. LEG WOUND DRESSINGS STILL C/D/I. DID MAKE 1 ATTEMPT TO GET OUT OF BED ON HIS OWN. ALL VSS HAS BEEN ON 1L 02 SINCE SURG. HE ALWAYS STATED HE DID NOT HAVE ANY PAIN EVEN WHEN PROMPTED ABOUT HIS LEG. SLEPT OFF AND ON. Follow up:
--- NOTE | 2016-10-09 11:56 | NUR ---
Talked with Dr. Mena in the hallway, let him know about [facility] not being able to accept until at least Wednesday. Also let him know that Danial was on the TCU list so once they had a bed we might be able to get him there for continued IV Abxs needs. Dr. Mena is fine with this plan. He also states that they might do another I&D down the road, but isn't for sure on that yet. Dr. Mena talked about possibly transfering him to [facility] in the next day or two. Will continue to follow and assist.
--- NOTE | 2016-10-09 19:01 | NUR ---
Significant Event: Patient agitated and combative this A.M., but has been much more cooperative and calm since haldol was given at 1115. High fall risk. Up with max 2 A to turn and pivot to chair. L)knee/leg remains unchanged. Wound care saw today. Started nystatin to groins. Incontinent of bowel and bladder today. VSS on RA. Mother came to see patient, which helped soothe the patient and make him happier. Pulled R)IJ out today. Now has R)chest port saline locked other than with antibiotics. ACHS accu checks. Turn q2h. Follow up: Continue as per plan of care. Continue IV antibiotics,
--- NOTE | 2016-10-10 04:25 | NUR ---
Significant Event: PT SLEPT MOST OF THIS SHIFT, UP APPRX 0230 IN CHAIR AND ATE SNACK AND APPROPRIATE BUT OBSESSING ABOUT LOCATION, PRN ATIVAN GIVEN. PT DENIES PAIN. DRESSING UNCHANGED THIS SHIFT, CDI TO LLE. CONT TO MONITOR.R CHEST PORT FLUSHES BUT DOES NOT DRAW, MAY BE POSITIONAL. Follow up:SWING BED PENDING
--- NOTE | 2016-10-10 17:16 | NUR ---
Significant Event: NPO THIS AM AND TO OR FOR I & D AND WOUND VAC PLACEMENT TO LT)KNEE; OFF FLOOR FROM [id number]. WAS VERY AGITATED AND YELLING OUT THIS AM AT SHIFT CHANGE FOR ABOUT AN HOUR; GAVE IV HALDOL WHICH HELPED HIM CALM DOWN. WAS UP TO RECLINER FOR A FEW HOURS THIS AM AND THEN BACK TO BED PRIOR TO GOING TO OR; WAS INCONTINENT OF URINE SEVERAL TIMES. WOUND VAC CONTINUES TO LT)KNEE AT 125 MMHG CONTINUOUS WITH MINIMAL DRAINAGE OUT; TO CALL O/C WOC RN THIS WEEKEND IF HAS LARGE AMOUNT OF OUTPUT OR OTHER ISSUES. RT)CHEST PORT FLUSHES WELL WITH GOOD BLOOD RETURN. OLD RT)IJ SITE DRESSING CHANGED D/T FALLING OFF. REPOSITIONED FREQUENTLY. IV VANCO CURRENTLY D/C'D DUE TO HIGH TROUGH-NEXT LEVEL TONITE AT 1999. Follow up: CONTINUE PLAN OF CARE.
[2016-10-10 20:40] LABS: ESTIMATED GFR (MDRD EQUATION) > 60
--- NOTE | 2016-10-11 04:35 | NUR ---
Significant Event:VSS.2L NC AT NIGHT. PT AROUSABLE, WHEN AWAKE, AGITATED AND OBSESSES BEING IN THE HOSPITAL AND WANTING TO LEAVE, MUTLIPLE ATTEMPTS TO GET OUT OF BED. PT ATE SOME DINNER W/ASSIST AND BATHED.IV ANTIBIOTICS GIVEN. ATIVAN AND HALDOL GIVEN X2. WOUND VAC TO LLE, SCANT DRAINAGE IN CANISTER Follow up:CONT WITH PLAN OF CARE
--- NOTE | 2016-10-11 15:50 | NUR ---
Significant Event: VSS AND RA. AFEBRILE. WOUND VAC TO LT) KNEE WOUND RUNNING WELL, MINIMAL DRAINAGE OUT. WAS MORE AGITATED THIS AM PRIOR TO HIS AM MEDS AND LATER THIS AFTERNOON YELLING OUT, BUT HAS NAPPED ON/OFF WITHOUT MUCH AGITATION T/O REST OF DAY; HALDOL GIVEN X2. RESTLESS AT TIMES, PULLING AT EQUIPMENT. PORT FLUSHED WELL WITHOUT BLOOD RETURN THIS AM; CATH MARLENE ACTIVASE PER PROTOCOL AND IS NOW WORKING FLUSHES WITH GOOD BLOOD RETURN. IV ABX CONTINUE. VOIDS WITH ADEQUATE UOP. Follow up: CONTINUE PLAN OF CARE.
[2016-10-12 04:22] LABS: ANION GAP 8.1 (10.0-19.0); BLOOD UREA NITROGEN 14 mg/dL (6-24); CALCIUM 10.4 mg/dL (8.5-10.5); CHLORIDE 111 mMol/L (96-110); CO2 32 mMol/L (22-32); ESTIMATED GFR (MDRD EQUATION) > 60; POTASSIUM 4.1 mMol/L (3.7-5.1)
[2016-10-12 04:23] LABS: SODIUM 147 mMol/L (135-145)
[2016-10-12 04:31] LABS: BASOPHIL # 0.1 K/uL (0.0-0.2); BASOPHIL % 1.3 %; EOSINOPHIL # 0.3 K/uL (0.0-0.5); EOSINOPHIL % 4.2 %; HEMATOCRIT 32.6 % (37.0-53.0); HEMOGLOBIN 9.8 g/dL (12.0-17.0); IMMATURE GRANULOCYTE % 0.1 %; LYMPHOCYTE # 2.8 K/uL (0.8-4.0); LYMPHOCYTE % 40.9 %; MCH 27.1 pg (27.0-34.0); MCHC 30.1 gm/dL (32.0-36.5); MCV 90.3 fl (83.0-98.0); MONOCYTE # 0.6 K/uL (0.0-1.0); MONOCYTE % 8.4 %; MPV 11.9 fl (9.4-12.4); NEUTROPHIL # (ANC) 3.1 K/uL (1.4-9.0); NEUTROPHIL % 45.1 %; NRBC % 0 /100WBC (0-0.00); PLATELET COUNT 267 K/uL (150-450); RBC 3.61 M/uL (4.00-6.00); RDW-CV 15.3 % (11.9-14.6); WBC 6.9 K/uL (4.0-11.0)
--- NOTE | 2016-10-12 04:57 | NUR ---
Significant Event:VSS.RA,SATS >90%. PT HAD A LATE DINNER AND MEDS. MAX 2 ASST. LLE WOUND VAC, 50CC OUT. DRESSING INTACT. IV ABX. PT TRYS TO GET OUT OF BED, HALDOL AND ATIVAN GIVEN X2. PT SPOKE TO MOM LAST NIGHT, REASSURANCE PROVIDED. PT CAN GET AGITATED AND OBSESS AT TIMES ABOUT HIS LOCATION. Follow up:CONT WITH PLAN OF CARE
--- NOTE | 2016-10-12 11:35 | NUR ---
Call to Monique at [facility], asked if they had any open beds. She states that she might have some but would like to see an update on Danial . I faxed her over an update so she could review it along with her medical team. She states she will review it and then get back to me on if they would be able to accept or not. Will continue to follow and assist.
--- NOTE | 2016-10-12 13:25 | NUR ---
A - NUT F/U. LLE WOUND VAC TO L) KNEE WOUND. 2-4+ EDEMA. WT DOWN D/T DECREASED EDEMA. LABS: ACCUCHECK WNL->200, NA 147, GLU 212 MEDS: SSI, LEVEMIR, CLINDAMYCIN, BOWEL, PROTONIX, ZOSYN DIET: DIABETIC. INTAKE: 0-25% KAVITA BID, GLUCERNA @ L NEEDS: [id number] KCAL, 106-127 G PRO D - INADEQUATE NUTRIENT INTAKE R/T DECREASED APPETITE AEB INTAKE RECORD. INCREASED PRO NEEDS R/T HEALING AEB LLE WOUND, WOUND VAC. I - GOAL FOR INTAKE > 50% BY NEXT ASSESSMENT. WILL ADD GLUCERNA @ B&D. M/E - WILL MONITOR INTAKE AND SKIN. F/U IN 3-5 DAYS.
--- NOTE | 2016-10-12 19:17 | NUR ---
PATIENT UP TO CHAIR W/ PHYSICAL THERAPY. SBP 160'S, REFUSED 3RD ASSESSMENT BP. PATIENT WAS AGITATED AT THAT TIME AND RECEIVED PRN HALDOL. PATIENT HAD INC STOOL AND THAT TIME AND THEN AGITATION IMPROVED. HR HIGH 50'S-60'S, SATS 95% ON RA. CONTINUED IV ANTIBIOTICS.
[2016-10-13 05:24] LABS: BASOPHIL # 0.1 K/uL (0.0-0.2); BASOPHIL % 1.6 %; EOSINOPHIL # 0.3 K/uL (0.0-0.5); EOSINOPHIL % 3.3 %; HEMATOCRIT 34.3 % (37.0-53.0); HEMOGLOBIN 10.3 g/dL (12.0-17.0); IMMATURE GRANULOCYTE % 0.2 %; LYMPHOCYTE # 3.3 K/uL (0.8-4.0); LYMPHOCYTE % 40.5 %; MCH 26.9 pg (27.0-34.0); MCV 89.6 fl (83.0-98.0); MONOCYTE # 0.8 K/uL (0.0-1.0); MONOCYTE % 9.2 %; MPV 11.9 fl (9.4-12.4); NEUTROPHIL # (ANC) 3.7 K/uL (1.4-9.0); NEUTROPHIL % 45.2 %; NRBC % 0 /100WBC (0-0.00); PLATELET COUNT 297 K/uL (150-450); RBC 3.83 M/uL (4.00-6.00); RDW-CV 15.4 % (11.9-14.6); WBC 8.2 K/uL (4.0-11.0)
--- NOTE | 2016-10-13 05:24 | NUR ---
Significant Event: PATIENT IS DISORIENTED TIME/PLACE. FOLLOWS MOST COMMANDS. PATIENT YELLS OUT FREQUENTLY WHEN AWAKE. UNABLE TO EXPRESS WHAT HE WANTS/NEEDS AT TIME. LINA ATIVAN GIVEN. IV HALDOL HELD FOR NOW UNLESS YELLING PROCEEDS. VSS. HR 50-60'S. SBP 150-180'S. AFEBRILE. 02 SATS IN MID 90'S ON 2L 02 AT NIGHT AND RA DURING DAY PER HOME 02 DOSE. LUNGS CLEAR/DIM TO DIM. UP WITH MAX 2A WITH WALKER/GB. DIDN'T HELP MUCH WHEN TRANSFERRING FROM CHAIR TO BED. BOWELS ACTIVE. INCONTINENT OF VOID AND STOOL. WOUND VAC TO LEFT LEG INTACT WRAP IN JACKLYN WRAP. RIGHT CHEST PORT WITH NS AT TKO AND INTERMITTENT IV ABX. CONTINUES TO HAVE 1-2+ EDEMA TO LOWER EXTREMITIES. Follow up: POSSIBLE DISCHARGE TODAY? CONTINUE TO MONITOR.
[2016-10-13 05:42] LABS: ALBUMIN 2.5 gm/dL (3.5-5.0); ALK PHOS 112 IU/L (33-138); ALT 13 IU/L (12-78); AST 13 IU/L (10-40); BLOOD UREA NITROGEN 18 mg/dL (6-24); CALCIUM 10.6 mg/dL (8.5-10.5); CHLORIDE 110 mMol/L (96-110); CO2 31 mMol/L (22-32); ESTIMATED GFR (MDRD EQUATION) > 60; POTASSIUM 3.9 mMol/L (3.7-5.1); TOTAL PROTEIN 7.7 g/dL (6.0-8.4)
[2016-10-13 05:46] LABS: ANION GAP 10.9 (10.0-19.0); SODIUM 148 mMol/L (135-145); TOTAL BILIRUBIN 0.2 mg/dL (0.0-1.5)
--- NOTE | 2016-10-13 10:30 | NUR ---
Diabetes consult: Patient lives at [facility] and is not a candidate for diabetes education. Blood sugars are well controlled today at 124 and 175. Will continue to monitor.
--- NOTE | 2016-10-13 12:32 | NUR ---
Called and spoke with Monique at [facility]. She says their nurse international manager reviewed the case and they are saying no, as time he requires exceeds what they normally have on SB. Will continue to look at options for patient. Will follow.
--- NOTE | 2016-10-13 17:07 | NUR ---
Significant Event: PT. ALERT TO SELF ONLY. PT. HAS BEEN AGIATED, YELLING LOUDLY THROUGHOUT THE DAY, GETS SCHEDULE ATIVAN & WAS GIVEN HALDOL X1 AT 1205. IDD TO SEE PT. TOMORROW. CONTINUES ON IV ABX'S TO RIGHT CHEST PORT. GETS SCHEDULED ULTRAM FOR PAIN. WOC CAME & DEBRIDED LEFT LEG & 3rd TOE AND CHANGED WOUND VAC TO LEFT KNEE, JACKLYN WRAP ON LEG INSTEAD OF ADRIANA HOSE, DRESSING C/D/I. ADRIANA HOSE ON TO RIGHT LEG. PT. HAS BEEN RESTING IN BED SINCE 1330, NO 3rd ASSESSMENT DONE D/T THIS. LEX DANIELLE REFUSES TO TAKE PT. INC. OF BOWEL/BLADDER. Follow up: CONTINUE WITH POC.
[2016-10-14 03:30] LABS: ANION GAP 11.6 (10.0-19.0); BLOOD UREA NITROGEN 16 mg/dL (6-24); CHLORIDE 108 mMol/L (96-110); CO2 30 mMol/L (22-32); ESTIMATED GFR (MDRD EQUATION) > 60; POTASSIUM 4.6 mMol/L (3.7-5.1); SODIUM 145 mMol/L (135-145)
[2016-10-14 03:35] LABS: CALCIUM 11.1 mg/dL (8.5-10.5)
[2016-10-14 04:18] LABS: BASOPHIL # 0.1 K/uL (0.0-0.2); BASOPHIL % 1.7 %; EOSINOPHIL # 0.3 K/uL (0.0-0.5); EOSINOPHIL % 3.6 %; HEMATOCRIT 35.8 % (37.0-53.0); HEMOGLOBIN 11.2 g/dL (12.0-17.0); IMMATURE GRANULOCYTE % 0.1 %; LYMPHOCYTE # 2.9 K/uL (0.8-4.0); LYMPHOCYTE % 38.9 %; MCH 27.7 pg (27.0-34.0); MCHC 31.3 gm/dL (32.0-36.5); MCV 88.6 fl (83.0-98.0); MONOCYTE # 0.6 K/uL (0.0-1.0); MONOCYTE % 7.8 %; MPV 12.2 fl (9.4-12.4); NEUTROPHIL # (ANC) 3.6 K/uL (1.4-9.0); NEUTROPHIL % 47.9 %; NRBC % 0 /100WBC (0-0.00); PLATELET COUNT 308 K/uL (150-450); RBC 4.04 M/uL (4.00-6.00); RDW-CV 15.5 % (11.9-14.6); WBC 7.5 K/uL (4.0-11.0)
--- NOTE | 2016-10-14 05:07 | NUR ---
Pt slept off and on throughout the night. When pt isn't sleeping he can be very vocal. SBP 180-190's but pt was agitated/combative through most of bp checks. Finally got a bp check on my third assessment where pt was resting comfortably/"sleeping" and his bp was still 180's. was given PRN hydralizine. Brought bp down to 140's. Pt is much more pleasant and cooperative this am. He can transfer to Med [facility] if they have a bed. Pt can't not d/c with wound vac as [facility] cannot care for it. Pharmacy needs to do pts med rec in comparison to [facility]'s med rec since all they did it off of was the med rec from [facility]. Plan: tentatively d/c back to [facility] on wed or to a swing bed?
--- NOTE | 2016-10-14 17:06 | NUR ---
Significant Event: Alert, disoriented to time and place at times. Forgetful. SBP-120-130. P- 60. Afebrile. Room air with saturations in the upper 90s. R) chest port saline locked. Wound vac to L) knee, C/D/I. Inc of urine at times. Yells out at times. Clindmycin changed to PO and zosyn discontinued. S/S insulin changed to aggressive. Able to change to transfer to [facility] if oppertunity avalible.
--- NOTE | 2016-10-15 04:18 | NUR ---
Pt was combative at begining of shift. day shift gave him an extra dose of ivp ativan prior to her leaving. Pt did not get his 2300 dose of ativan or tramadol as he was asleep and was not able to swollow safely. 0500 dose given early at 245ish dt pt aggitation again. He does have prn ativan q4 ivp if needed as well as ivp haldol. wound vac to left knee still intact. voided per urinal last noc. antibiotics are all po now. sbp 110-140's, hr 50-60's 90's on RA, and afebrile all noc Plan: ? transfer to [facility] per dr avila's orders
--- NOTE | 2016-10-15 12:06 | NUR ---
Stopped by Danial's room to review his chart and also talk with primary RN Georgia. She states that per Dr. Del Cid's note in the chart, he had spoke with Dr. Moreno Rainey and he would accept Danial at [facility]. Explained to Georgia that just because the PA accepted, doesn't mean that they have a bed for him or that they will accept. I did go ahead and call Monique, Fiscal Economist, at [facility], gave her the above information re:doc acceptance. She states that she is not aware that PA has accepted, but will check into it. Also updated her that Danial was not going to need IV Abxs anymore as they were all switched to orals. He would just be needing wound vac management and also PT/OT. Monique states she would check on things and get back to me. In the meantime I called [facility] in [place], talked with his primary RN Lisa, who states that they can't accept him back with a wound vac as "they can't do major medical things." I let her know this was fine and I would continue to keep them updated. After I got off the phone with her, Monique called me back, states that "I talked with DR. Moreno Rainey and he didn't talk with Dr. Del Cid or ever accept Danial to the facility." She also once again states that they can't accept. Thanked her for checking into things for me. I updated RN Georgia to the above so she was in the loup. I later phoned [facility] phone mancia, she states they can't accept him either. I later talked with Dr. Taveras, updated him to the above, he plans to move Danial to either [facility] or [facility] later on when they have a bed. Will continue to follow and assist.
--- NOTE | 2016-10-15 14:51 | NUR ---
A - NUT F/U. WOUND VAC TO L) KNEE. 1-2+ EDEMA. AGGITATED. DRINKING SUPPLEMENT. LABS: ACCUCHECK REAS->300, GLU 201, ALB 2.5 MEDS: SSI, LEVEMIR, PROTONIX, BOWEL/NAUSEA, KEFLEX DIET: DIABETIC. INTAKE: SIPS-100% GLUCERNA TID, KAVITA BID NEEDS: [id number] KCAL, 106-127 G PRO D - INADEQUATE NUTRIENT INTAKE AT TIMES R/T DECREASED APPETITE AEB INTAKE RECORD. I - GOAL FOR INTAKE 50-75% BY NEXT ASSESSMENT. WILL CONTINUE CURRENT SUPPLEMENTS. M/E - WILL MONITOR INTAKE F/U IN 4-6 DAYS.
--- NOTE | 2016-10-15 15:15 | NUR ---
OT: OT evaluation was attempted however per nursing OT to hold on the eval as the pt is sleeping. N.Lungrin OTR/L
--- NOTE | 2016-10-15 17:22 | NUR ---
Significant Event: ALERT TO SELF ONLY. VSS ON RA. PT. HAS BEEN YELLING LOUDLY ON/OFF THROUGHOUT THE DAY. STILL WAITING ON PLACEMENT. DR. VEGA'S PA JAIME CAME AND LOOKED AT LLE & WOUND VAC THIS AFTERNOON. IV ATIVAN & HALDOL GIVEN X1 TODAY. PT. HAS BEEN UP TO CHAIR MOST OF THE DAY. STILL REMAINS ON AC/HS ACCUCHECKS. PT. SLEPT FOR 2 1/2 HOURS THIS AFTERNOON. PT. HAS TRIED TO HIT STAFF SEVERAL TIMES TODAY. PT. IS A 2 ASSIST. Follow up: CONTINUE WITH POC.
--- NOTE | 2016-10-16 05:30 | NUR ---
Significant Event: Patient is alert and oriented to self only. Hollers out. Agitated at times. Uncooperative at times. Up with heavy 2-3 assist, gait belt, and walker. VSS on room air. HRs in the 60s-70s. SBPs in the 130s-150s. Afebrile. Left leg dressing is clean, dry, and intact. Wound vac to left leg is intact. Incontinent of stool and urine at times. Takes pills whole in pudding, needs instructions/reminded to swallow. Right chest port, saline locked. Needle changed this shift. Receives scheduled PO Ativan. At 0330 patient became very agitated and combative, tried to hit staff. Haldol IVP given last at 033. Ativan IVP given last at 344. ACHS accuchecks. Follow up: Waiting on placement
[2016-10-16 07:58] LABS: BASOPHIL # 0.2 K/uL (0.0-0.2); BASOPHIL % 1.6 %; EOSINOPHIL # 0.3 K/uL (0.0-0.5); EOSINOPHIL % 3.1 %; HEMATOCRIT 39.6 % (37.0-53.0); HEMOGLOBIN 12.3 g/dL (12.0-17.0); IMMATURE GRANULOCYTE % 0.2 %; LYMPHOCYTE # 3.2 K/uL (0.8-4.0); LYMPHOCYTE % 34.2 %; MCH 27.4 pg (27.0-34.0); MCHC 31.1 gm/dL (32.0-36.5); MCV 88.2 fl (83.0-98.0); MONOCYTE # 0.9 K/uL (0.0-1.0); MONOCYTE % 9.9 %; MPV 12.2 fl (9.4-12.4); NEUTROPHIL # (ANC) 4.8 K/uL (1.4-9.0); NRBC % 0 /100WBC (0-0.00); PLATELET COUNT 309 K/uL (150-450); RBC 4.49 M/uL (4.00-6.00); RDW-CV 15.6 % (11.9-14.6); WBC 9.3 K/uL (4.0-11.0)
[2016-10-16 08:09] LABS: ANION GAP 11.8 (10.0-19.0); BLOOD UREA NITROGEN 36 mg/dL (6-24); CHLORIDE 107 mMol/L (96-110); CO2 30 mMol/L (22-32); CREATININE 1.3 mg/dL (0.6-1.3); ESTIMATED GFR (MDRD EQUATION) > 60; POTASSIUM 4.8 mMol/L (3.7-5.1); SODIUM 144 mMol/L (135-145)
[2016-10-16 08:11] LABS: CALCIUM 11.6 mg/dL (8.5-10.5)
--- NOTE | 2016-10-16 13:31 | NUR ---
[address] Del Cid's PA, Triny Turcios, requesting that I call her back re: Danial's acceptance to [facility]. I phoned her back, explained what had happened yesterday. I let her know that I had talked with Monique at the [facility] yesterday morning and when she talked with Dr. Moreno Rainey at that time, he had not heard about this patient and had not formally accepted him. I also let her know that per Monique, they didn't have the bed or the nursing staff available to possibly care for Danial at this time, so they won't be accepting him. I let her know that per [facility], they weren't able to accept pt at this time. It was also to my knowledge that when I had called and talked with Monique, careers adviser, yesterday morning Dr. mildred Pedroza report/acceptance had not been granted. Dr. Del Cid then took over the phone call on Triny's cell phone, I started to explain the situation of the events that took place the day beofre, but he stoped me and stated that, "I was to call and talk with Dr. Moreno Rainey, PA directly to see if he was not being honest about talking with him re:accepting patient and then get back to me with your findings." He then proceeded to hang up. I then called the [facility] and requested to talk with Dr. Mayer myself so I could get the whole situation figured out. I did talk with Dr. Moreno Rainey, he states that "at the time when I had called yesterday nidhi and Monique had talked with him, I had not talked with Dr. Del Cdi about this patient. I did make contact with him around lunchtime, but let him know that I was fine with accepting the patient, however Monique stated to me that she didn't think that there was a bed open and that they didn't have the staff to appropriately care for the patient so I didnt' think they were going to accept him." I let him know that I was appreciative of his time and let him know I would contact Monique to make sure that once again they won't be able to accept. I phoned Monique, explained all the above to her, she once again states they won't be able to accept. I updated GANGA Marin to all of the above. I also followed up and called Dr. Del Cid's PA back as well to explain all of the above, she voiced understanding to everything and thanked me for my time. I let her know that if Dr. Del Cid had any additional questions or concerns to please contact me directly and I would be happy to visit with him. Will continue to follow and assist.
--- NOTE | 2016-10-16 18:12 | NUR ---
PATIENT HAS BEEN UP IN CHAIR TODAY, BECAME ANXIOUS 3 TIMES TODAY AND RECEIVED HALDOL AND ATIVAN FOR BEHAVIORS. MOTHER WAS HERE TODAY AND PATIENT ENJOYED HER VISIT.
--- NOTE | 2016-10-17 05:57 | NUR ---
Significant Event: HAS SHOWED NO S/S OF PAIN. AT START OF SHIFT, PT WAS VERY VOCAL AND YELLING OUT. HE WAS FED SOME SUPPER AND HE YELLED DURING THE ENTIRE TIME. AFTER HE WAS LEFT ALONE, HE WENT TO SLEEP AND SLEPT THE REST OF THE NIGHT EXCEPT FOR WHEN HE WAS TAKING HIS MEDS. HE WAS PLACED ON 2L O2 AT 0255 FOR SATS IN THE UPPER 80s. HE HAD 1 LARGE INCONT VOID AND 1 CONTINENT VOID. Follow up:
--- NOTE | 2016-10-17 17:11 | NUR ---
Significant Event: PT HAS BEEN VERY AGGITATED AND NOISEY 2 TIMES THIS SHIFT. HALDOL, ATIVAN, ULTRAM GIVEN AT VARIOUS INTERVALS TO TRY AND CALM AND QUIET HIM DOWN. HE IS ABLE TO CONVERSE AT TIMES BUT DOESN'T UNDERSTAND. HITS WHEN HE REALLY GETS AGGITATED. TAKES MEDS GOOD AN LOVES HIS STRAWBEERY MILK. TAKES MEDS WHOLE. Follow up: MONITOR
--- NOTE | 2016-10-18 04:38 | NUR ---
Significant Event: STARTED OFF SHIFT YELLING OUT AND EVENTUALLY CALMED DOWN AND WENT TO SLEEP. RIGHT BEFORE HIS HS MEDS HE WOKE UP AND WAS YELLING OUT AGAIN. HE SETTLED DOWN ABOUT 45 MIN AFTER. HE WOKE UP AT ABOUT 0330 AND YELLED OUT AGAIN. HALDOL AND HIS SCHEDULED ATIVAN WAS GIVEN. DURING THE TIMES HE IS YELLING, HE STATES HE WANTS TO MOVE, YELLS OUT FOR ROSI. HE IS ABLE TO BE CALMED DOWN FOR A SHORT TIME AND THEN HE STARTS YELLING OUT AGAIN. HE HAS BEEN COMBATIVE AT TIMES. HE HAS REMAINED AFEBRILE. BP SLIGHTLY ELEVATED ALL NIGHT. LARGE CONTINENT VOID X1 AND LARGE INCONTINENT VOID X1. THE WOUND VAC REMAINS INTACT. SEROSANG DRAINAGE. Follow up:
--- NOTE | 2016-10-18 12:21 | NUR ---
Significant Event: Patient transferred to [facility], report called to Sol RN at 1016. VS WNL on room air. Lungs clear-dim, heart tones distant. One incontinent void early this am. Wound-vac to L) leg intact and working. Leg wrapped, dressings intact. Port to chest has good blood return. Haldol and IV ativan x1 and patient remained calm & cooperative. Follow up: Per plan of care on [facility].
--- NOTE | 2016-10-18 15:59 | NUR ---
Significant Event:Patient yells at intervals. Routine Haldol and Ativan given. Confused and mentally slow. Inc. of large amt of urine, smear of stool. Left leg vickey wrap intact and wound vac on. No family here or calls made. Ate bites for lunch. Is a feeder. Takes fluids fair. Accucheck covered.
--- NOTE | 2016-10-19 04:13 | NUR ---
Significant Event: Patient goes by "TANNER". Yells out intermittently, but calms down with meds and decreased stimulation. No incontinent episodes tonight, patient used urinal to void. No BM. Nystatin cream to groin folds. Wound vac to L) leg, no kandice on wound vac so unsure of output from yesterday or today. Port to R) chest. Good blood return. Reposition every 2 hours. Vitals stable and on room air. From [facility]. Tranfer from PCU yesterday at 1100. Leg dressing intact. PO meds given with sips of water or soda. ACHS accuchecks. Follow up: Monitor agitation
[2016-10-19 05:50] LABS: CREATININE 1.4 mg/dL (0.6-1.3)
[2016-10-19 06:04] LABS: BASOPHIL # 0.1 K/uL (0.0-0.2); BASOPHIL % 1.2 %; EOSINOPHIL # 0.3 K/uL (0.0-0.5); EOSINOPHIL % 2.8 %; HEMATOCRIT 43.1 % (37.0-53.0); HEMOGLOBIN 13.2 g/dL (12.0-17.0); IMMATURE GRANULOCYTE % 0.3 %; LYMPHOCYTE # 3.4 K/uL (0.8-4.0); LYMPHOCYTE % 35.2 %; MCH 27.2 pg (27.0-34.0); MCHC 30.6 gm/dL (32.0-36.5); MCV 88.7 fl (83.0-98.0); MONOCYTE # 0.9 K/uL (0.0-1.0); MONOCYTE % 9.3 %; MPV 13.4 fl (9.4-12.4); NEUTROPHIL % 51.2 %; NRBC % 0 /100WBC (0-0.00); PLATELET COUNT 258 K/uL (150-450); RBC 4.86 M/uL (4.00-6.00); RDW-CV 15.4 % (11.9-14.6); WBC 9.7 K/uL (4.0-11.0)
--- NOTE | 2016-10-19 15:46 | NUR ---
Consulted with BELLA Pabon on patient. Pepper has tried to find a bed for patient at [facility], but they will not accept patient. [facility] will not take patient back on the wound vac. Pepper also spoke to patient's mom about trying [facility], but his mom is against this as he is already confused and agitated, the more he is moved to different places the more agitated he becomes. Patient was sleeping when I went in the room to visit and there were no family members with him. I will follow up tomorrow and if I do not meet family, I will place a call to his mom. Will continue to follow while here.
--- NOTE | 2016-10-19 17:15 | NUR ---
A-NUTRITION F/U TRANSFER FROM U ON 10/18 AGITATED AT TIMES. 1:1 FEEDER. WOUND VAC TO LLE LABS: NA 143, K+ 4.0, LGU 156, BUN 45, SOFTWARE PRODUCT SPECIALIST 1.4 MEDS: HODANEMIRWES DIET RX: CONSISTENT CARB. STRAWBERRY GLUCERNA TID AND KAVITA BID. PO INTAKE IS BITES-75%. DOES LIKE THE STRAWBERRY GLUCERNA AND TAKES IT WELL. EST NUTR NEEDS: [id number] KCALS AND 106-127 GM PROTEIN D-AT NUTRITION RISK W/INADEQUATE INTAKE OF NUTRIENTS R/T ALTERED MENTAL STATUS, POOR APPETITE AEB CHART REVIEW, INTAKE RECORDS. I-1)CONTINUE W/CURRENT INTERVENTIONS IN PLACE 2)IF PO INTAKE DOES NOT IMPROVE, MAY NEED TO CONSIDER TUBE FEEDING, IF DESIRED M/E-GOAL: PO INTAKE >/=50% BY NEXT F/U 1)F/U PO INTAKE SUPPLEMENT, AND POC IN 3-5 DAYS 2)ASSIST NEEDED
--- NOTE | 2016-10-19 18:03 | NUR ---
Significant event: Patient has been agitated throughout the day. Haldol and Ativan was given. Worked with PT, moved to chair and back to bed. Bed/chair alarms on at all time. Has wound vac to left knee, is now on intermittent suction. Has anny hose on right leg. Has been incontinent x3 and voided x1 in urinal. Takes meds whole a couple at a time with diet pepsi. Nystatin to groin folds. Has port to right chest with good blood return. Is reposition q 2 hours. Is ACHS accuchecks and is a full feeder.
--- NOTE | 2016-10-20 04:46 | NUR ---
Significant Event: Patient is alert and oriented to self. Disoriented to time and place. Follows commands. Yells out intermittently. Haldol given x 1. VSS on room air. Up with heavy 2 assist. Incontinent of urine at times. Dressing to left leg is intact. Wound vac to left leg intact, set up to intermittent suction. Right chest port, saline locked. Good blood return. ACHS accuchecks. Takes pills whole in pudding or with sips or water/pop. Patient has been sleeping most of the shift and cooperative with most cares. Follow up: Continue to monitor. Waiting on placement.
[2016-10-20 05:36] LABS: BLOOD UREA NITROGEN 36 mg/dL (6-24); CHLORIDE 107 mMol/L (96-110); CO2 32 mMol/L (22-32); CREATININE 1.3 mg/dL (0.6-1.3); ESTIMATED GFR (MDRD EQUATION) > 60; POTASSIUM 4.1 mMol/L (3.7-5.1)
[2016-10-20 05:37] LABS: ANION GAP 11.1 (10.0-19.0); CALCIUM 11.2 mg/dL (8.5-10.5); SODIUM 146 mMol/L (135-145)
--- NOTE | 2016-10-20 19:01 | NUR ---
Significant event: Patient is alert and oriented. VSS, is a little hypertensive at times. Patient needs repositioned q 2hours. Is blind, but hears well. Takes meds whole. Port to right chest. Haldol and Ativan given x1 today for hollering and agitation. Is ACHS with aggressive coverage. 4 units given at lunch and supper. Will use urinal at times, otherwise incontinent. Is a 1-1 feeder. Cooperative with cares. Talk to patient explain what you are doing.
--- NOTE | 2016-10-21 03:43 | NUR ---
Significant Event:PT ALERT HOWEVER DISORIENTED TO TIME/SELF/PLACE. PLEASANT WITH CARES, DOES YELL OUT AT TIMES. PRN HALDOL GIVEN AT 0130,PT DID CALM DOWN HOWEVER DID AWAKE AND PRN ATIVAN GIVEN AT 0345.PT TAKES MEDICAION WHOLE IN APPLESAUCE ONE AT A TIME. PT BLOOD SUGAR AT HS WAS 154 WHICH NEEDED 4 UNITS OF INSULIN. INCONT OF URINE, WOUND VAC IN PLACE TO LEFT KNEE,JACKLYN WRAP IN PLACE TO AREA. ALARMS IN PLACE AT ALL TIMES. RIGHT UPPER CHEST PORT, FLUSHES WELL WITH GOOD BLOOD RETURN. Follow up:
[2016-10-21 05:57] LABS: BLOOD UREA NITROGEN 39 mg/dL (6-24); CHLORIDE 106 mMol/L (96-110); CO2 32 mMol/L (22-32); CREATININE 1.3 mg/dL (0.6-1.3); ESTIMATED GFR (MDRD EQUATION) > 60; SODIUM 145 mMol/L (135-145)
[2016-10-21 06:01] LABS: CALCIUM 12.3 mg/dL (8.5-10.5)
--- NOTE | 2016-10-21 19:53 | NUR ---
Significant Event: Alert and disoriented. Very anxious this shift and HTN this shift. Yells out, wanting to go home. BLood pressure was 168/106, continued with this rate until he relaxed after giving him Tramadol and Haldol. Port to upper left chest, flushes well and good blood return. 3 incontinent void and BM's this shift. Mina wrap and wound vac on left leg. Medication whole in applesauce. Cooperative with cares. Follow up:
--- NOTE | 2016-10-22 03:55 | NUR ---
Significant Event:PT ALERT HOWEVER DISORIENTED TO TIME AND PLACE.PT REST WELL DURING NIGHT.PRN HALDOL GIVEN AT 1830 AND 0300 WHICH SEEMS TO WORK WELL FOR PT.HAS PORT TO RIGHT CHEST WITH NO COMPLICATIONS NOTED. TAKES MEDICATION WHOLE IN APPLESAUCE 1 AT A TIME.WOUND VAC IN PLACE TO LEFT KNEE. VERY LITTLE TO NO OUTPUT NOTED. INCONTIENT OF URINE X2 DURING SHIFT.ACHS BLOOD SUGAR AT HS WAS 134 SO NO COVERAGE WAS NEEDED. PT CAN YELL OUT AT TIMES.PT NEEDS ASSITANCE WITH ALL MEALS.IS VERBAL HOWEVER CAN BE HARD TO UNDERSTAND. DOES NOT USE CALL LIGHT HOWEVER WILL YELL OUT. Follow up:
[2016-10-22 05:20] LABS: CREATININE 1.5 mg/dL (0.6-1.3); POTASSIUM 3.9 mMol/L (3.7-5.1)
[2016-10-22 05:21] LABS: ANION GAP 10.9 (10.0-19.0); CALCIUM 12.9 mg/dL (8.5-10.5)
--- NOTE | 2016-10-22 15:45 | NUR ---
A - NUTRITION FOLLOW-UP. PRADER-WILLI SYNDROME. WOUND VAC TO LEFT KNEE. YELLED OUT ALL THE TIME. LABS: NA 148, GLU 135, BUN 41, CREA 1.5. MEDS: REVIEWED. DIET: CONSISTENT CARB W/ GLUCERNA BID AND KAVITA BID. 1:1 FEEDER. REFUSED MEALS. ONLY LIKES SODA. INTAKE 20% X10 MEALS. EST NEEDS: [id number] KCAL, 106-127 GRAMS PROTEIN, FLUID NEEDS: 1ML/KCAL D - INADEQUATE ORAL INTAKE RELATED TO DECREASED APPETITE EVIDENCED BY PO 20% X10 MEALS AND VALVER REPORT. I - DISCONTINUE KAVITA BID; CONTINUE WITH GLUCERNA BID AND TRIAL MAGIC CUP ONCE DAILY. MIGHT BENEFIT FROM ENTERAL NUTRITION IF DESIRED. M/E - GOAL: PT WILL BE ABLE TO TOLERATE >50% OF MEALS AND AT LEAST ONE ORAL SUPPLEMENT PER DAY IN 2-4 DAYS.
--- NOTE | 2016-10-22 15:59 | NUR ---
Significant Event: Patient is occasionally oriented to self, but always disoriented to time and place, however he knows he wants to go home. Port to the right chest, SL. Good blood return. Lawrence catheter in place for a 24 hour urine test. Started at 1230. It will be completed on 10/23/16 at 1230. Accuchecks AC/HS. Patient is not swallowing well and has not been able to eat much today- he has been pocketing food. Oral cares to be performed at least twice daily and PRN. Have completed x2. Will be starting on cinacalcet tomorrow. 2 large BMs today. Turn every 2 hours as patient allows. Haldol given x1 this am at 0740. Perocect given x1 at 1420. Relief noted. Resting comfortably. Wound Vac to the left knee. Heavy 2PA up to the chair. PT/OT working with the patient. Tele on. Cooperative with cares. Meds whole in applesauce. Follow Up:
[2016-10-23 05:36] LABS: CREATININE 1.7 mg/dL (0.6-1.3); POTASSIUM 3.9 mMol/L (3.7-5.1)
[2016-10-23 05:40] LABS: ANION GAP 10.9 (10.0-19.0)
[2016-10-23 05:41] LABS: CALCIUM 13.2 mg/dL (8.5-10.5)
--- NOTE | 2016-10-23 12:26 | NUR ---
Spoke to JACOB Kelly RN and she states the wound vac was discontinued today. Patient's calcium is still elevated and they are still collecting the 24 hour urine study. Per Blane Presley APRN he states patient will likely be ready to return to [facility] in [place] on Wednesday. I placed a courtesy call to [facility] to let them know that patient is improving. I spoke to Heather, one of the nurses at 1145 today and she states that they will need to come and assess patient before he can come back to [facility]. She states that the leg wound has to be completely healed before they will take him back. Heather's concern is that patient throws himself on the floor when he is upset and other residents spit on the floor and other bodily fluids are on the floor so they would be concerned if the wound isn't completely healed he will get another infection. I asked her to plan to have someone come and assess him on Wednesday and then we can possibly plan a discharge for Wednesday afternoon. She will notify her cheese production supervisor and plan on someone being here Wednesday morning. I notifed Blane Presley of Heather's concerns.
--- NOTE | 2016-10-23 16:29 | NUR ---
Significant Event: PT ORIENTED TO PERSON ONLY. HAS BEEN SLEEPY MOST OF DAY, OCCASSIONAL PERIODS OF YELLING/OUTBURSTS. PT/OT WORKING WITH. PT UP TO CHAIR MOST OF AFTERNOON. REPOSITIONED Q2HR. 24HR URINE SENT TO LAB, PEÑALOZA PULLED AT 1235. NO VOID AT THIS TIME. BRIEF IS ON PT. 500ML BOLUS GAVE. WOUND VAC AND ABX DC'D. LLE DRESSING TO BE CHANGED ON WED/WED AND PRN. WOC RN SEEING. AC HS ACCUCHECKS, NO SSI GIVEN. PT IS DAILY WT. TELEMTRY ON WITH NO CALLS. PORT TO R CHEST, SALINE LOCKED. ATTEMPTED TO GIVE MEDS WHOLE IN APPLESAUCE, PT STRUGGLED- SO CRUSHED MEDS THAT WERE ABLE TO BE CRUSHED. NEEDS HELP WITH MEALS. ENJOYS PEPSI. PLAN IS DC TO [facility] IN [place] WHEN STABLE. Follow up: BED ALARMS FOR SAFETY, CONTINUE TO MONITOR, LABS IN AM
[2016-10-23 17:15] LABS: URINE CALCIUM VOLUME 900 mL
[2016-10-24 05:25] LABS: ANION GAP 9.8 (10.0-19.0); CREATININE 1.6 mg/dL (0.6-1.3); POTASSIUM 3.8 mMol/L (3.7-5.1)
--- NOTE | 2016-10-24 05:36 | NUR ---
Significant Event: Repositioned. Incontinent of bowel and bladder. On room air. R) chest port with good blood return. Accu check. Telemetry with no calls. Daily weight. Feeder. Dressing is clean, dry and intact. Crush meds in applesauce. Halodol x1 at 2352. Follow up:
--- NOTE | 2016-10-24 16:00 | NUR ---
A&O. FULL LIFT. 130'S SBP. HR 60'S-70'S. RA. AFEBRILE. PEÑALOZA TEA COLOR . NO BM TODAY. HEP GTT AT 2100 TO DC AT 1900. TELE NO CALLS. BRACE ON AT ALL TIMES SCATTERED BLISTERS UNDER BRACE ABD TO R HIP AND LEG. INC TO L HIP CDI GAUZE TAPE. DILAUDID X1 VALIUM X1. SCHED TYLENOL.
--- NOTE | 2016-10-24 16:05 | NUR ---
PREVIOUS NOT ON WRONG PT: FULL CARES. FULL LIFT . FROM [facility]. NON VERBAL. TURN Q2. INC B&B. MEDS CRUSHED IN APPLESUACE. ACHS. L KNEE JACKLYN AND GAUZE CDI. PORT R CX SL. 1L BOLUS TODAY. TELE. DAILY WT. RA. VSS, HTN 150'S-160'S. PLAN IS BACK TO [facility]
[2016-10-25 04:19] LABS: ANION GAP 11.5 (10.0-19.0); CREATININE 1.4 mg/dL (0.6-1.3); POTASSIUM 3.5 mMol/L (3.7-5.1)
[2016-10-25 04:25] LABS: BASOPHIL # 0.1 K/uL (0.0-0.2); BASOPHIL % 0.5 %; EOSINOPHIL # 0.1 K/uL (0.0-0.5); EOSINOPHIL % 0.7 %; HEMATOCRIT 47.4 % (37.0-53.0); HEMOGLOBIN 14.4 g/dL (12.0-17.0); IMMATURE GRANULOCYTE # 0.1 K/uL (0.0-0.3); IMMATURE GRANULOCYTE % 0.3 %; LYMPHOCYTE # 2.4 K/uL (0.8-4.0); LYMPHOCYTE % 14.7 %; MCH 27.4 pg (27.0-34.0); MCHC 30.4 gm/dL (32.0-36.5); MCV 90.3 fl (83.0-98.0); MONOCYTE # 1.5 K/uL (0.0-1.0); MONOCYTE % 9.1 %; MPV 14.2 fl (9.4-12.4); NEUTROPHIL # (ANC) 12.3 K/uL (1.4-9.0); NEUTROPHIL % 74.7 %; NRBC % 0 /100WBC (0-0.00); PLATELET COUNT 229 K/uL (150-450); RBC 5.25 M/uL (4.00-6.00); RDW-CV 15.1 % (11.9-14.6)
[2016-10-25 04:28] LABS: WBC 16.4 K/uL (4.0-11.0)
--- NOTE | 2016-10-25 04:41 | NUR ---
Significant Event: Pt from [facility] and does mumble/slur speech at times. Will sometimes follow commands, but rarely. Pt is blind. Pt is full cares, q2 turns, full lift. Pt is incontient of bowel and bladder. When pt starts to get loud with yelling, many times it is regarding brief being wet. VSS, afebrile, RA. Pt on tele. Rt chest port with good blood return. Pt's Lt knee is AJCKLYN wrapped and scattered blisters (?) down leg. 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 [facility] is to re-evaluate pt on Wednesday to determine if he is going back. Follow up:
--- NOTE | 2016-10-25 17:50 | NUR ---
Significant Event: pt very lethargic this shift. BPs running 154/100-152/107. Afebrile. Meds gave crushed in pudding, held vitamins due to pt being lethargic and hard to arouse. Has frequent cough after eating and drinking. CXR done. Scheduled ultram changed to PRN. ST consult. blood cultures x2(1 peripheral and 1 through port) Started D51/2NS @ 75ml/hr. Repositioned q2hr. Dressing to LLE intact, change wednesday/wednesday and PRN. Pt had 2 inc voids, no BM. AC HS accuchecks, no SSI needed. Telemtry on with no calls. Held morning and afternoon scheduled doses of ativan due to lethargy. Follow up: continue to monitor, monitor for aspiration
[2016-10-26 03:55] LABS: CREATININE 1.4 mg/dL (0.6-1.3); PHOSPHORUS 2.3 mg/dL (2.5-4.9)
[2016-10-26 03:56] LABS: ANION GAP 11.4 (10.0-19.0); CALCIUM 11.2 mg/dL (8.5-10.5)
[2016-10-26 03:59] LABS: BASOPHIL # 0.1 K/uL (0.0-0.2); BASOPHIL % 0.8 %; EOSINOPHIL # 0.1 K/uL (0.0-0.5); HEMATOCRIT 46.3 % (37.0-53.0); HEMOGLOBIN 13.9 g/dL (12.0-17.0); IMMATURE GRANULOCYTE % 0.3 %; LYMPHOCYTE # 2.9 K/uL (0.8-4.0); LYMPHOCYTE % 24.1 %; MCH 27.1 pg (27.0-34.0); MCV 90.4 fl (83.0-98.0); MONOCYTE # 1.2 K/uL (0.0-1.0); MONOCYTE % 9.8 %; NEUTROPHIL # (ANC) 7.6 K/uL (1.4-9.0); NRBC % 0 /100WBC (0-0.00); PLATELET COUNT 195 K/uL (150-450); RBC 5.12 M/uL (4.00-6.00); RDW-CV 15.2 % (11.9-14.6); WBC 11.9 K/uL (4.0-11.0)
[2016-10-26 04:08] LABS: POTASSIUM 3.4 mMol/L (3.7-5.1)
--- NOTE | 2016-10-26 05:03 | NUR ---
Significant Event: Pt remained sedated overnight. Gave PRN Haldol x1. Restarted fluids d/t pt not eating or drinking much. SUPERINTENDENT STATIONS consult in d/t pt coughing while eating. Pt is 1:1 feeder. VSS, remained afebrile and on RA. Full cares, q2 turns, (will slide down in bed even with the knees raised), and full lift. Na+ is still elevated 153, K+ still low at 3.4, and Ca+ is elevated at 11.2. [facility] is to come and re-evaluate pt today regarding if pt can return. Pt will start yelling out when brief is wet. Incontinent of bowel and bladder. Continue with plan of cares. Follow up:
--- NOTE | 2016-10-26 10:33 | NUR ---
Informed my charge nurse Liza that Heather from [facility] was here to assess patient. I placed a call to Heather at [facility] at 1030 to see what her thoughts are after seeing patient. Heather states that she is going to have to talk to her supervisor clam bed and financial aid administrator because at this time she does not think they will be able to meet his needs. She will call me once she has met with them. Will start referral process to SNF's in the area.
--- NOTE | 2016-10-26 13:55 | NUR ---
A-NUTRITION F/U 10/23 WOUND VAC D/C VERY LETHARGIC YESTERDAY, PER CHART REVIEW. D5/NS STARTED. (+)BM 10/24 CBW 90.3 KG; ADMIT WT 100.4 KG. SWALLOW EVAL COMPLETED TODAY; ST RECOMMENDS A PUREE DIET W/NECTAR THICK LIQUIDS. LABS: NA 153, K+ 3.4, GLU 160, BUN 39, IMPROVEMENT SPECIALIST 1.4, ALB 3.0 MEDS: SENSIPAR, BUSPAR, GEODON, ULTRAM, CYMBALTA DIET RX: CONSISTENT CARB W/GLUCERNA BID AT B/L AND MAGIC CUP AT D PO INTAKE 0-25%. PT IS A 1:1 FEEDER. EST NUTR NEEDS: 0469-1689 KCALS AND 106-127 GM PROTEIN D-AT NUTRITION RISK W/INADEQUATE INTAKE OF NUTRIENTS R/T ALTERED MENTAL STATUS, DECREASED APPETITE AEB INTAKE RECORDS, NURSING REPORT, WT LOSS. I-1)D/T ST REC: FOR NECTAR THICK LIQUIDS, D/C GLUCERNA BID 2)ADD STRAWBERRY MIGHTY SHAKES TID W/MEALS 3)CONTINUE W/MAGIC CUP AT DINNER 4)IF TF DESIRED, RECOMMEND GLUCERNA 1.2 AT A GOAL RATE OF 75 ML/HR (PROVIDING 2160 KCALS, 108 GM PROTEIN, AND 1449 ML FREE WATER) W/ 175 ML WATER FLUSH Q6 HRS. M/E-GOAL: PO INTAKE 25-50% BY NEXT ASSESSMENT 1)F/U PO INTAKE, SUPPLEMENT, WT, AND POC (3-5 DAYS) 2)WILL ASSIST NEEDED
--- NOTE | 2016-10-26 14:11 | NUR ---
PT'S WT IS DOWN 10.1 KG SINCE ADMIT. PO INTAKE IS POOR; 0-25%. SUPPLEMENTS IN PLACE. IF TF DESIRED, PLEASE CONSULT.
--- NOTE | 2016-10-26 14:51 | NUR ---
Significant Event: Patient has been sleepy/drowsy all day. Woke up with much stimulus this a.m. and did finally get patient to take most of his pills. Have held patient's buspar, clonopin, and ativan today. Did speak with doctor when here and meds will be adjusted. Ate 25% of breakfast and only bites for lunch. IV fluids continue at this point but doctor is deciding about maybe changing fluids. Is on a purreed diet with nectar thick liquids and is a 1:1 feeder for all meals and meds. Has not had a BM today. Infusaport intact and patent. Follow up: Continue to monitor.
--- NOTE | 2016-10-27 04:24 | NUR ---
Significant Event: RESTED QUIETLY MOST OF SHIFT. AROUND 0330, BRIEF CHANGED INCONTINENT LARGE AMOUNT OF URINE, GULSHAN CARES DONE. PATIENT YELLS OUT AT INTERVALS. ON PUREE DIET THICKEN. LIKES PEPSI. PATIENT IS A 1 :1 FEEDER. IS A FULL LIFT. BEEN REPOSITIONED IN BED. MOUTH SWABBED WHEN AWAKE. GIVEN ATIVAN 1MG TAB AT 2300/0500. AT HS ACCUCHECK 157. GIVEN INSULIN ORDERED. IV FLUIDS CONTINUING. INFUSAPORT INTACT. TAKEN BITES FOR SUPPER. Follow up:
[2016-10-27 06:02] LABS: BLOOD UREA NITROGEN 27 mg/dL (6-24); CALCIUM 10.2 mg/dL (8.5-10.5); CHLORIDE 109 mMol/L (96-110); CREATININE 1.2 mg/dL (0.6-1.3); ESTIMATED GFR (MDRD EQUATION) > 60; POTASSIUM 3.2 mMol/L (3.7-5.1)
[2016-10-27 06:03] LABS: ANION GAP 10.2 (10.0-19.0); CO2 35 mMol/L (22-32); SODIUM 151 mMol/L (135-145)
[2016-10-27 06:05] LABS: BASOPHIL # 0.1 K/uL (0.0-0.2); EOSINOPHIL # 0.3 K/uL (0.0-0.5); EOSINOPHIL % 3.3 %; HEMATOCRIT 43.8 % (37.0-53.0); HEMOGLOBIN 13.1 g/dL (12.0-17.0); IMMATURE GRANULOCYTE % 0.2 %; LYMPHOCYTE # 3.4 K/uL (0.8-4.0); LYMPHOCYTE % 33.6 %; MCH 27.1 pg (27.0-34.0); MCHC 29.9 gm/dL (32.0-36.5); MCV 90.5 fl (83.0-98.0); MONOCYTE % 9.7 %; NEUTROPHIL # (ANC) 5.3 K/uL (1.4-9.0); NEUTROPHIL % 52.2 %; NRBC % 0 /100WBC (0-0.00); PLATELET COUNT 177 K/uL (150-450); RBC 4.84 M/uL (4.00-6.00); RDW-CV 15.1 % (11.9-14.6); WBC 10.2 K/uL (4.0-11.0)
--- NOTE | 2016-10-27 16:21 | NUR ---
Phone call this morning from Alissa at [facility] stating they are not able to accept patient. Phone call at 1430 from Heather, nurse at [facility] and Meron [place] Operator at [facility]. Meron states at this time they are not able to accept patient back due to his medical needs. They are concerned about him because they state when he left their facility and went to the hospital he was ambulating on his own, feeding himself, alert and communicating. Heather states that when she assessed him yesterday he acted as though he did not recognize her, he was a 1:1 feeder, and he is not ambulating. Heather also stated that he has a sore on his toe of his left foot that appears to need debridment and she was stating it appears that no one has tended to this toe as it did not have a dressing on it. They question if any of the physicians are addressing the apparent changes in his cognition and ability to ambulate and feed self. I did inform them that Dr. Mattson has made adjustments to his medications, has ordered additional labs, and ordered a CT of the head. I assured them that we are taking his care seriously and are meeting his needs and pursuing additional testing. They suggest I look at swingbed options or SNF placement. I informed them that I have made referrals to all of the SNF's here in [place], but have not pursued a swingbed as I was waiting to hear back from them. They said to try [facility] as they did not think [facility] would take him back. I told them that I would prefer to look at a SNF versus a swingbed because I am concerned he may need longer term placement before he would be able to return to [facility] and I would hate [facility]. They voiced their understanding of this. I called patients mom Stephanie at 1455 and was informed by her spouse that she was on her way to [place]. I met with Stephanie on the floor at 1520. We talked for approximately 35 mins regarding placement options for patient. I shared with her my conversation with [facility] earlier today and I let her know that at this time they are not able to accept patient back at their facility in his current medical state and what their recommendations are. Stephanie is in agreement with trying to locate a SNF or swingbed that will accept patient. He has been at [facility] before and his doctor is from [place] Dr. Charly Rainey. She also said it is okay to look at facilities in [place] as this will be closer for her to see him. She did say that we should not tell patient the name of the town he is going to as this will just upset him if he is told he is not going back to [place]. She states his old doctor in [place] was Dr. Luis Contreras at [facility] and she is confident that he will accept patient back in his care. I had her sign the OBRA 8 for the PAS[facility] ID Screen while she was here. We do not have a copy of the legal guardianship papers in his chart or in [facility] so I asked her to fax a copy to me as soon as she can. I gave her the care management number of [phone] to call and get in touch with me or the CM following Arya and I gave her our fax number of [phone]. I did tell her that I will be out of the office the remainder of this week and Wednesday of next week, but another CM will be following in my absence. She states she feels alot better now that she has some information on what the plan is. She states she has not been happy with [facility] and how they have responded to her questions. She also says that she has not been happy with [facility] response to questions as she never knows who is doctor is for the day and whenever she calls the floor she is told that the staff does not know who is doctor is or the nurse never returns her call. I apologized to her fot the lack of communication on our end. Again she states she feels better now knowing what steps are being taken to find him placement. CM department will continue to napoleon.
--- NOTE | 2016-10-27 17:40 | NUR ---
Significant Event: Patient is more alert today at times. Has been sleepy and drowsy on and off, but able to talk to me in sentences and follow commands. Dr. Hua changed some of his meds around to maybe help him be more awake during the day. CT of the brain now due to altered mental status. Vitamin D level checked. No salt to food! We are to offer more the plain thickened water rather than pop due increased sodium levels of 151. Accuchecks AC/HS. Pureed diet. [place] thickened liquids. Encourgaing oral intake, has done better today. Crushing pills in applesauce or pudding. Dressing changed to the left knee today by [facility]. Bilateral hands and thighs have become slightly red this evening, will monitor. VSS and on RA. Tele on, no calls. Incontient of urine at times. Cooperative with cares.
--- NOTE | 2016-10-28 04:58 | NUR ---
Significant Event: Patient has rested quietly most of shift. Became irritated while taking meds, requested female nurse. 1MG tab Ativan given at 2330. 1:1 feeder, puree diet, nectar thick liquids, pills crushed and in applesauce or pudding. HS Accucheck 72, Novolog held, Levimir given after pt had applesauce and Pepsi. NS at 75ml/hr to port in right chest. Pt pulled port, new access established. Cellulitis to left leg. Edema in legs, more in left leg. Left knee covered in Mina Wrap, dressing changes every Wednesday/Wednesday. Bruising to lower right leg. Heavy 2 assist. Pt is incontinent of urine and stool.
[2016-10-28 06:08] LABS: ANION GAP 8.1 (10.0-19.0); BLOOD UREA NITROGEN 21 mg/dL (6-24); CALCIUM 9.7 mg/dL (8.5-10.5); CHLORIDE 104 mMol/L (96-110); CREATININE 1.2 mg/dL (0.6-1.3); ESTIMATED GFR (MDRD EQUATION) > 60; POTASSIUM 3.1 mMol/L (3.7-5.1); SODIUM 144 mMol/L (135-145)
[2016-10-28 06:12] LABS: CO2 35 mMol/L (22-32)
[2016-10-28 10:34] LABS: BASOPHIL # 0.1 K/uL (0.0-0.2); BASOPHIL % 0.5 %; EOSINOPHIL # 0.3 K/uL (0.0-0.5); EOSINOPHIL % 2.1 %; HEMATOCRIT 41.9 % (37.0-53.0); HEMOGLOBIN 12.6 g/dL (12.0-17.0); IMMATURE GRANULOCYTE % 0.2 %; LYMPHOCYTE # 3.2 K/uL (0.8-4.0); LYMPHOCYTE % 22.6 %; MCH 26.9 pg (27.0-34.0); MCHC 30.1 gm/dL (32.0-36.5); MCV 89.5 fl (83.0-98.0); MONOCYTE # 1.3 K/uL (0.0-1.0); MONOCYTE % 9.3 %; MPV 13.9 fl (9.4-12.4); NEUTROPHIL # (ANC) 9.3 K/uL (1.4-9.0); NEUTROPHIL % 65.3 %; NRBC % 0 /100WBC (0-0.00); PLATELET COUNT 164 K/uL (150-450); RBC 4.68 M/uL (4.00-6.00); RDW-CV 15.1 % (11.9-14.6); WBC 14.3 K/uL (4.0-11.0)
--- NOTE | 2016-10-28 11:25 | NUR ---
[phone] phone call from Maggie Umaña in stating Dr. Mattson would like [facility] to come and reassess patient as he is more alert today and starting to ambulate better. Per Maggie patient was able to walk to the shower with minimal SBA and required minimal assistance in the shower. I contacted Heather at [facility] [phone] and she was rather abrasive on the phone stating "he must have made a miraculous recovery". She states she will have to talk to her construction administrator before coming to reassess patient. I contacted [facility] and [facility] and placed referrals to both. I faxed information to both of them at [phone] today. To Constantin, I faxed to Albertina at [phone] and to Liz I faxed to Renetta at [phone]. I also started the ID Screen. I have not received the fax yet from patient's mom with the legal guardian papers. At team huddle at 1040 I was informed by patient's nurse that he is much more alert and talking. He did not walk to the shower per her. He stood and pivoted, but only took one to two steps. He required assistance by nurse aid when showering. CT scan did not show any bleed or new concerns per Dr. Hua notes. Will make referral to shelter facilities today.
--- NOTE | 2016-10-28 14:01 | NUR ---
Phone call placed to patient's mom Taylor at 1245 today. I left her a message on her voice mail asking her to remember to fax me the legal guardian paperwork. Phone call back from Taylor at 1310 stating she worked all morning and will get the papers faxed today or tomorrow. In the meantime I had SW director international Ivanna call Heather at [facility] to see if she can fax the legal guardianship papers to us so I can send the OBRA8 and legal documents to [facility] for his ID Screen. I placed calls to Buffy at [facility] in [place] ([phone]) and made a referral to her. I faxed patient's information to her at [phone]. I also made referral to [facility] in at [phone]. I faxed patient's information to Brandee at [facility] at [phone]. I also called [facility] at [phone] and left a message for Barb Pérez to call me back regarding referral. I called Dr. Luis Contreras at [facility] in [phone] to see if he would be willing to resume care of patient if I can find skilled placement for him in . Per Dr. Contreras's nurse Beverly, Dr. Contreras will resume care of patient if he returns to . I shared this will all of the SNF's that I referred patient too. I also faxed Dr. Contreras patient's information so he has an update on what has been transpiring with patient's care since being here (fax to Beverly at [phone]). I did not have the legal guardianship papers from patient's mom when I made all the referrals so we will need to provide that to the facility if they are willing to accept patient. I faxed OBRA 8, Legal guardianship papers, H&P, med list to [facility]. I did not have any psych data to send to [facility]. Faxed this information to [phone]. Will wait to hear back from [facility] and the facilities that referrals were made to. CM department will continue to follow patient.
--- NOTE | 2016-10-28 17:03 | NUR ---
Significant Event: PT ALERT MOST OF DAY. ORIENTED TO PERSON, SOMETIMES TO PLACE. NEEDS REMINDED THAT HE IS IN THE HOSPITAL AND NOT IN [place]. WILL BECOME AGITATED SOMETIMES AND SHOUT HE WANTS TO GO HOME. HAS SCHEDULED ATIVAN. NO PRN DOSES GIVEN PT IS EASY TO CALM. HE LIKES COUNTRY MUSIC. HIS FAVORITE SONG IS "DIMITRI". PLAYED IT FOR HIM A COUPLE TIMES AND HE CALMED. HE ENJOYS BEING TALKED WITH. 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 REMINDED HIM THAT HE NEEDS TO EAT AND GET STRONGER. PT/OT WORKING WITH. PT DID SHOWER THIS AM. 2PA, WALKER TO THE SHOWER CHAIR. ENJOYS WEARING HIS PANTS AND SHOES. HO FROM [employer] IS SUPPOSED TO BE BRINGING HIS PERSONAL WALKER UP THIS EVENING SOMETIME. PUREE DIET, NECTAR THICK LIQUIDS, HIGH PROTEIN, NO ADDED SALT- SUPERVISION WITH ALL MEALS. PT WILL FEED HIMSELF WITH DIRECTION. PT ATE 100% CHOCOLATE MAGIC CUP FOR SNACK THIS AFTERNOON. REPORTS HE LIKES CHICKEN, COTTAGE CHEESE, AND CHOCOLATE ICE CREAM. NEEDS TO BE ENCOURAGED TO COUGH STRONG. PT IS DAILY WT. TELEMTRY ON WITH NO CALLS. PORT TO R CHEST, D5 WATER RUNNING AT 50ML/HR. DRESSING TO LLE INTACT, JACKLYN WRAP RE APPLIED. DRESSING CHANGES ON TUE/FRI AND PRN. Follow up: ENCOURAGE PO INTAKE, CONTINUE TO MONITOR
--- NOTE | 2016-10-29 05:22 | NUR ---
Significant Event: PATIENT IS ALERT AND AWARE OF HIS SURROUNDINGS. VS WNL ON RA AFEBRILE. HE TAKES MEDS CRUSHED IN APPLESAUCE. HE TOOK ALL MEDS THIS SHIFT. AMBULATES WITH 2 ASSIST GAIT BELT WALKER LIKES TO BE EXPLAINED WHAT YOU ARE DOING BEFORE YOU DO IT. VERY PLEASANT AND COOPERATIVE WITH CARES. HE LIKES LISTENING TO RADIO, WEARING PANTS AND SHOES. NECTOR THICK LIQUIDS WITH PURRED FOOD DIET. ACHS ACCUCHECKS NO SLIDING SCALE INSULIN THIS SHIFT. PORT TO RIGHT CHEST FLUIDS RUNNING AT 50ML/HR. SEE PREVIOUS NOTE FOR LIKES. Follow up:
[2016-10-29 06:08] LABS: ALBUMIN 2.8 gm/dL (3.5-5.0); ANION GAP 11.5 (10.0-19.0); BLOOD UREA NITROGEN 19 mg/dL (6-24); CALCIUM 9.5 mg/dL (8.5-10.5); CHLORIDE 103 mMol/L (96-110); CO2 34 mMol/L (22-32); CREATININE 1.2 mg/dL (0.6-1.3); ESTIMATED GFR (MDRD EQUATION) > 60; PHOSPHORUS 2.9 mg/dL (2.5-4.9); POTASSIUM 3.5 mMol/L (3.7-5.1); SODIUM 145 mMol/L (135-145)
--- NOTE | 2016-10-29 11:00 | NUR ---
A - NUTRITION F/U. K+ 3.5, GLU 73, BUN/DEXTRINE MIXER 19/1.2, ALB 2.8. PT W/ 1+ EDEMA T/O. DIET: PUREE NECTAR THICK, BF INTAKE 25-50%. L/D 0-25%. OFFERED MAGIC CUP AT DINNER. LIKES ICE CREAM. IVF AT 50 ML/HR. D - AT RISK W/ INADEQUATE ORAL INTAKE R/T DECREASED APPETITE AND DIFFICULTY SWALLOWING AEB INTAKE RECORD. I - GOAL: 50% ORAL INTAKE BY NEXT REVIEW. M/E - PT UNABLE TO MEET NEEDS ORALLY. REC TF W/ GLUCERNA AT 75 ML/HR = 2160 KCALS, 108 GM PROTEIN, 1449 ML FREE H20 IF PT WOULD TOLERATE. WILL F/U IN 3-5 DAYS.
[2016-10-29 12:25] LABS: BASOPHIL # 0.1 K/uL (0.0-0.2); BASOPHIL % 0.5 %; EOSINOPHIL # 0.4 K/uL (0.0-0.5); EOSINOPHIL % 3.5 %; HEMATOCRIT 40.5 % (37.0-53.0); HEMOGLOBIN 12.6 g/dL (12.0-17.0); IMMATURE GRANULOCYTE % 0.3 %; LYMPHOCYTE # 3.4 K/uL (0.8-4.0); LYMPHOCYTE % 29.6 %; MCH 27.5 pg (27.0-34.0); MCHC 31.1 gm/dL (32.0-36.5); MCV 88.4 fl (83.0-98.0); MONOCYTE # 1.2 K/uL (0.0-1.0); MONOCYTE % 10.5 %; NEUTROPHIL # (ANC) 6.3 K/uL (1.4-9.0); NEUTROPHIL % 55.6 %; NRBC % 0 /100WBC (0-0.00); PLATELET COUNT 165 K/uL (150-450); RBC 4.58 M/uL (4.00-6.00); RDW-CV 15.1 % (11.9-14.6); WBC 11.4 K/uL (4.0-11.0)
[2016-10-29 12:41] LABS: ANION GAP 11.5 (10.0-19.0); BLOOD UREA NITROGEN 20 mg/dL (6-24); CALCIUM 9.4 mg/dL (8.5-10.5); CHLORIDE 102 mMol/L (96-110); CO2 33 mMol/L (22-32); CREATININE 1.3 mg/dL (0.6-1.3); ESTIMATED GFR (MDRD EQUATION) > 60; POTASSIUM 3.5 mMol/L (3.7-5.1); SODIUM 143 mMol/L (135-145)
--- NOTE | 2016-10-29 13:58 | NUR ---
RECEIVED CALL FROM MAYA AT [facility] AND THEY WILL NOT ACCPET PATIENT DUE TO PATIENT NEEDING " TOO MUCH CARE" WILL CONT TO FOLLOW NEEDED.
--- NOTE | 2016-10-29 16:59 | NUR ---
Significant Event:Awake most of the day.Has been very upset & agitated today.Yelling out alot & trying to hit,pinch,& bite.IV haldol was given later this morning.Has been up with 2-3 assists & walker.Does not want to move that Lt.leg.Drsg on knee was changed by wound care nurse.Has not taken most of his meds today.Either just wouldnt take them or he spit it out.Has Rt.chest port.Has tele on.Has been incont.Wants to go home. Follow up:
[2016-10-30 04:59] LABS: ANION GAP 11.5 (10.0-19.0); BLOOD UREA NITROGEN 23 mg/dL (6-24); CALCIUM 9.4 mg/dL (8.5-10.5); CHLORIDE 102 mMol/L (96-110); CO2 34 mMol/L (22-32); CREATININE 1.3 mg/dL (0.6-1.3); ESTIMATED GFR (MDRD EQUATION) > 60; POTASSIUM 3.5 mMol/L (3.7-5.1); SODIUM 144 mMol/L (135-145)
[2016-10-30 05:16] LABS: BASOPHIL # 0.1 K/uL (0.0-0.2); BASOPHIL % 0.8 %; EOSINOPHIL # 0.4 K/uL (0.0-0.5); EOSINOPHIL % 4.4 %; HEMATOCRIT 37.9 % (37.0-53.0); HEMOGLOBIN 11.7 g/dL (12.0-17.0); IMMATURE GRANULOCYTE % 0.3 %; LYMPHOCYTE # 3.5 K/uL (0.8-4.0); LYMPHOCYTE % 37.3 %; MCH 27.3 pg (27.0-34.0); MCHC 30.9 gm/dL (32.0-36.5); MCV 88.3 fl (83.0-98.0); MONOCYTE # 1.1 K/uL (0.0-1.0); MONOCYTE % 11.4 %; MPV 14.6 fl (9.4-12.4); NEUTROPHIL # (ANC) 4.3 K/uL (1.4-9.0); NEUTROPHIL % 45.8 %; NRBC % 0 /100WBC (0-0.00); PLATELET COUNT 144 K/uL (150-450); RBC 4.29 M/uL (4.00-6.00); RDW-CV 15.1 % (11.9-14.6); WBC 9.3 K/uL (4.0-11.0)
--- NOTE | 2016-10-30 05:20 | NUR ---
Significant Event: ALERT TO SURROUNDINGS AND SELF. BEDREST. PATIENT TOOK ALL HIS PO PILLS CRUSHED THIS SHIFT WITH ICE CREAM AND CHOCOLATE PUDDING. HE DID REFUSE HIS ORAL MEDS AND EYE DROPS. HE WAS PLEASANT THIS SHIFT. AROUND 0400 HE BECAME RESTLESS BECAUSE HE WAS HUNGRY HE HAD 2 PEANUTBUTTER AND JELLY SANDWHICHES WITH SOME DIET PEPSI. AFTER HE ATE HE WAS IN GOOD SPIRITS AGAIN. [facility] BLOOD SUGAR WAS 238 INSULIN WAS GIVEN. PORT TO R) CHEST. IS ON TELE WITH NO CALLS THIS SHIFT. Follow up:
--- NOTE | 2016-10-30 10:05 | NUR ---
SPOKE TO DIANE AT [facility] SHE REPORTS THAT THEY WILL NOT BE ABLE TO ACCEPT PATIENT. WILL MAKE REFERRAL TO [facility]. AND SHE WILL LOOK INTO PLACEMENT WITH SNF IN THEIR BRANCH IN [place].
--- NOTE | 2016-10-30 10:27 | NUR ---
SPOKE TO [facility] TO SEE IF THEY HAVE ANY PLACES THAT WOULD ACCEPT REA. [facility] WOULD LIKE FOR ME TO FAX INFO TO HER SHE WILL REVIEW IT AND CHECK ON PLACEMENT.
--- NOTE | 2016-10-30 13:24 | NUR ---
I have examined the student charting and find it acceptable. GANGA Rios
--- NOTE | 2016-10-30 15:00 | NUR ---
RECEIVED CALL FROM [facility], SHE HAS REVIEWED THE INFO THAT I FAXED TO HER AND SHE IS GOING TO START TO MAKE REFERRALS TO THE [facility]. SHE WILL CONTACT ME SOMETIME WEDNESDAY WITH AN UPDATE.
--- NOTE | 2016-10-30 19:12 | NUR ---
Patient is alert but disoriented at times. Is a 1-1 feeder of pureed and nectar thickened liquids, ok to have pop no thickened per Speech. ACHS accucheck with mild SSI. L) leg is bandaged and wrapped, had a wound vac at one time but was DC'd. Port to R) chest is saline locked. 2 assist with walker and gait belt but only goes a few steps. Tele on with no calls. Has been calling out throughout the day even with staff in the room. Becomes aggitated and starts to hit and attempts to bite. A total of 6mg of IV haldol given this shift with the last 2mg given at 1827. Ativan IV 1mg was given at 172. Takes meds crushed in applesauce or pudding. Waiting for placement.
--- NOTE | 2016-10-31 05:53 | NUR ---
Significant Event: Pt very agitated at beginning of shift. IV haldol given by day nurse. Pt did calm and want to go back to bed at 1900. 2 assist with walker. Tubigrib removed at HS. PT did take all HS meds crushed in applesauce except the liquid meds. Refused oral cares as well. Voids per urinal. 1:1 feeder. Port to right chest. Became agitated and Ativan was given around 0200. Follow up: Cont monitor.
[2016-10-31 06:00] LABS: ANION GAP 11.1 (10.0-19.0); CALCIUM 9.3 mg/dL (8.5-10.5); CREATININE 1.5 mg/dL (0.6-1.3); POTASSIUM 4.1 mMol/L (3.7-5.1)
--- NOTE | 2016-10-31 16:23 | NUR ---
Significant event: Patient is alert. VSS. ON room air. Port to right chest, saline locked. Has been very agitated today. Hitting, kicking, biting, etc. Haldol and ativan given. last dose ativan was 1330 and Haldol was 1300. Was able to get up to wheelchair and push around suarez and sat at nurses station for a while. Mom did come visit and that helped patient too. Has not ate well today and took morning meds late. Did eat some ice cream this afternoon and drank diet pepsi. Takes meds crushed, pureed food, nectar thick liquids. Is okay for pt to have pepsi without thickener in it. Did have 2 units of insulin for lunchtime ss. Has mepilex dressing to left knee, was replaced today. Continue to monitor behavior issues.
--- NOTE | 2016-11-01 04:40 | NUR ---
Significant Event: Uneventful night, no calls from tele, leopoldo schaeffer. Went to bed shortly after shift change. Refused liquid meds but took his others. Has rested throughout the night. Incontinent of urine x 1 and voided 850. Follow up: Continue plan of care.
[2016-11-01 06:16] LABS: ALBUMIN 2.9 gm/dL (3.5-5.0); ANION GAP 12.7 (10.0-19.0); CALCIUM 9.1 mg/dL (8.5-10.5); CREATININE 1.5 mg/dL (0.6-1.3); PHOSPHORUS 3.4 mg/dL (2.5-4.9); POTASSIUM 3.7 mMol/L (3.7-5.1)
[2016-11-01 06:39] LABS: BASOPHIL # 0.1 K/uL (0.0-0.2); BASOPHIL % 0.7 %; EOSINOPHIL # 0.5 K/uL (0.0-0.5); EOSINOPHIL % 5.6 %; HEMATOCRIT 36.6 % (37.0-53.0); HEMOGLOBIN 11.5 g/dL (12.0-17.0); IMMATURE GRANULOCYTE % 0.2 %; LYMPHOCYTE # 3.8 K/uL (0.8-4.0); LYMPHOCYTE % 38.7 %; MCH 27.3 pg (27.0-34.0); MCHC 31.4 gm/dL (32.0-36.5); MCV 86.9 fl (83.0-98.0); MONOCYTE # 1.3 K/uL (0.0-1.0); MONOCYTE % 12.9 %; NEUTROPHIL # (ANC) 4.1 K/uL (1.4-9.0); NEUTROPHIL % 41.9 %; NRBC % 0 /100WBC (0-0.00); PLATELET COUNT 144 K/uL (150-450); RBC 4.21 M/uL (4.00-6.00); RDW-CV 14.9 % (11.9-14.6); WBC 9.7 K/uL (4.0-11.0)
--- NOTE | 2016-11-01 17:38 | NUR ---
Combative, yelling, hitting, biting, kicking today. Gave Haldol, Ativan IV PRNs and x1 dose w/little relief. Port to R)chest w/GBR. Up to nurses' station. Pops x3 today also. Voids per urinal. LLE reddened; encourage elevation. Dressing to L knee intact.
--- NOTE | 2016-11-02 02:55 | NUR ---
Significant Event:Patient is a 1:1 for behavior issues on day shift. He was calm and tired during the evening shift and went to bed around 2014. Refused any liquid medications. Voids in large amounts. Around 0200 he awoke screaming and yelling out to staff that he wanted to go home, and various other people names. He covered his ears while yelling. Patient was told earlier that he needed to stop yelling and acting out or he would not be able to go home, he stated, "I can be good". Tried to grab at this nurse and pulled and broke name badge cord and locater. Finally settled back down after some ice cream and pop and is now listening to the radio. Follow up: Continue to on 1:1
--- NOTE | 2016-11-02 13:00 | NUR ---
PATIENT VERY RESTLESS AND CALLING OUT. I HAVE NOT HEARD FROM THE SNF THAT I FAXED INFO TO. PATIENT IS UP WITH MIN ASSIT AND KEEPS YELLING THAT HE WANTS TO GO HOME. I NOTIFIEDMOSIAC AND SPOKE TO ELIA GAVE HER UPDATE ON [facility] AND TOLD HER THAT PATIENT WANTS TO GO HOME. I GAVE ELIA AND UPDATE DID HIS PRIMARY NURSE DANGELO. GINNY IS GOING TO TAKE THIS UPDATE TO THE TEAM AND SHE WILL GET BACK TO US.
[2016-11-02 15:34] LABS: CALCIUM 8.6 mg/dL (8.5-10.5); CREATININE 1.6 mg/dL (0.6-1.3)
--- NOTE | 2016-11-02 17:16 | NUR ---
ATTMEPTED TO SEE PT THIS DATE. NURSING REQUESTED NOT TO DISTURB PT HAD NOT SLEPT WELL. ST WILL F/U IN AM. THANKS
--- NOTE | 2016-11-02 18:50 | NUR ---
Significant Event: PT A/O. VSS ON RA, AFEBRILE. PORT TO R CHEST, LR RUNNING AT 150ML/HR X1L. ACHS ACCUCHECKS. MILD SSI. PUREE DIET WITH NECTAR THICK LIQUIDS ORDERED, NOTE FROM SPEECH THERAPY STATES MAY HAVE SOME SOFT FOODS, JUST NEEDS VERBAL CUES TO DOUBLE SWALLOW. POPS DO NOT HAVE TO BE NECTAR THICK. REMAINS 1:1 FOR BEHAVIORS. WILL HAVE EMOTIONAL OUTBURSTS, WAS ABLE TO REDIRECT THIS AM BUT AT LUNCH PT THREW TRAY AND WAS HITTING AT STAFF. PRN HALDOL, BENADRYL, ATIVAN IV. PT FINALLY CALMED AFTER AN HOUR OR SO. PT/OT WORKING WITH. PT HAS AMBULATED IN HALLWAY WITH 2PA, CONTACT GUARD. NEEDS VERBAL CUES TO DIRECTIONS DUE TO SIGHT IMPAIRMENT. PT FREQUENTLY YELLING OUT HE WANTS TO GO HOME AND WE ARE LIARS. CALLED [facility] AND LET PT SPEAK WITH STAFF THERE FOR A BIT THIS AFTERNOON AND CALMED PT BRIEFLY. BELLA BOYLE AND MYSELF CALLED [facility] WITH UPDATE AND ASKED FOR THEM TO COME RE EVALUATE. GINNY STATED SHE WOULD LET [facility]OR[facility] KNOW. HAVE NOT SEEN ANYBODY ROUND YET. PSYCH IS ALSO TO COME IN AND EVAL, HAVE NOT SEEN YET. PT BECOME AGITATED AGAIN AROUND 1700, WAS HITTING AND TRYING TO BITE STAFF YELLING "I WANNA GO HOME". PRN HALDOL AND PRN ATIVAN GAVE IV. DRESSING TO L KNEE CHANGED THIS AFTERNOON, MEPILEX. Follow up: MONITOR BEHAVIORS, FALL PRECAUTIONS, 1:1
--- NOTE | 2016-11-02 19:25 | NUR ---
A-NUTRITION F/U PT HAS HAD AN INCREASE IN AGITATION AND EMOTIONAL OUTBURSTS. THREW LUNCH TRAY TODAY AND HITTING AT STAFF. (+)BM 10/31. PER SPEECH, PT MAY HIS POP WITHOUT BEING THICKENED; DRINKS ABOUT 3 A DAY. LABS: NA 140, K+ 4.0, GLU 197, BUN 21, DISTRIBUTION OPERATIONS MANAGER 1.6, ALB 2.9, 4/-PREALB 29.0 MEDS: LEVEMIR ADJ., ATIVAN, KLONOPIN, DEPAKENE, BUSPAR, CYMBALTA, SENOKOT DIET RX: PUREE/NECTAR THICK W/MAGIC CUPS TID. PT IS A 1:1 FEEDER. PO INTAKE IS 0-100%. EST NUTR NEEDS: 6939-0651 KCALS AND 106-127 GM PROTEIN D-AT NUTRITION RISK W/INADEQUATE INTAKE OF NUTRIENTS R/T DECREASED APPETITE, INCREASE IN EMOTIONAL OUTBURSTS, DIFF. SWALLOWING AEB SPEECH EVAL, CHART REVIEW, AND INTAKE RECORDS. I-1)CONTINUE W/MAGIC CUPS TID; PT LIKES ICE CREAM 2)PT IS UNABLE TO MEET NEEDS ORALLY; IF DESIRED AND PT WILL TOLERATE, RECOMMEND STARTING TF OF GLUCERNA 1.2 AT 75 ML/HR OR NOCTURNAL FEEDINGS OF GLUCERNA 1.2 AT 125 ML/HR X 12 HOURS. M/E-GOAL: PO INTAKE WILL BE >/=50% BY NEXT F/U 1)F/U PO INTAKE, SUPPLEMENT, AND POC IN 3-5 DAYS 2)ASSIST NEEDED
[2016-11-03 07:58] LABS: ANION GAP 10.8 (10.0-19.0); CALCIUM 8.6 mg/dL (8.5-10.5); CREATININE 1.5 mg/dL (0.6-1.3); POTASSIUM 3.8 mMol/L (3.7-5.1)
--- NOTE | 2016-11-03 09:57 | NUR ---
SIGNIFICANT EVENT: Patient fluctuates between calm and cooperative to combative, screaming, uncooperative. Remains 1:1 sitter, hi/lo bed. L) leg cellulitis. Regular puree diet, nectar thick liquids. R) chest port is TKO NS. Patient behavior prevented HS medication administration and 1st assessment. Haldol and ativan given x1. Unable to obtain HS BG. Second assessment VSS on RA - obtained during brief period of calm at 0145. [facility] rep is to come reassess today.
--- NOTE | 2016-11-03 16:03 | NUR ---
Significant event: Took meds at 0700 and 0800 medicines, refused most of 0900 medicines did agree to take Levimer insulin. Became increasingly agitated through morning. Had Haldol twice, Ativan once and Benedryl once all IV. Ambulated to BR with walker, gait belt and 2 staff this am. Walked good with right leg, needed cueing to bring left leg. C/O pain to left ankle, Percocet given and denied pain after that. Has slept most of afternoon. New orders for medicine, see orders. His mom was here from [phone]. Lena from [facility] here this am. Dressing changed per WOC to left knee. redness to left ignacio. Continues on 1:1 sitter, is impulsive and tries to get up on his own.
--- NOTE | 2016-11-03 17:29 | NUR ---
Notified by the charge nurse on the floor that Heather from [facility] assessed patient this morning. I was informed that patient was not wanting to participate in therapy or walk when Heather was here. I was also informed my Cm Maggie Umaña that patient was yelling for me yesterday. I went in and talked to Arya at 0945 today as he was upset in his room. He kept asking and telling me that he wants to go home. I told him that I would contact Heather at [facility] and talk with her about his discharge plan. I received a call from Heather requesting his past week of therapy notes, CT results, chest xray report, and last week of labs. I compiled all of this and faxed it to Heather at [phone]. I spoke to Arya's mom Taylor at 1040am and explained to her that Heather came to see patient this morning and that I faxed additional paperwork to her. Taylor states she is having a meeting at [facility] this afternoon and they will let me know their decision on accepting Arya back at the facility. At approximately 1330 I received a call from Meron, Vending Machine Refiller of [facility]. She states that they are planning on Arya returning to them on of Wednesday of this week. She indicates that they are having to move Arya to a different cottage, which means they need to move other residents out to other cottages and this is going to take [facility] a few days to make these arrangements. She expects that they will be able to have Arya return on Wednesday of this week, but she will try to see if they can make that happen on . Meron's direct line at [facility] is [phone] ext [phone] and her cell phone is [phone]. I spoke to Arya's mom Taylor when she came to see Arya at approximately 1445 and let her and Arya know that the plan is for him to return to [facility] by Wednesday of this week. Will continue to follow and address any concerns the next few days.
--- NOTE | 2016-11-03 21:06 | NUR ---
PER NURSING REQUEST, PT WAS NOT AWAKENED TO PARTICIPATE IN THERAPY. NURSING REPORTED PT WITH DIFFICULT NIGHT AND HAD NOT GOTTEN MUCH IF ANY SLEEP. ST WILL F/U IN AM. THANKS
--- NOTE | 2016-11-04 04:14 | NUR ---
Significant Event: Patient calm most of shift. Got agitated a couple times, does well when someone sits and talks to him. Refused meds at 2100, but agreed to take them around 2250. ACHS accuchecks. Scheduled PO seroquel given. Patient tolerated well. Up in chair and refusing to get into bed, finally agreed to get into bed around 0130. Incont urine and stool X1. Port to R) chest with LR at 150ml X1 liter. Walks with 2-3 person assist and walker. Tolerates well when wants to. Needs cueing. Dressing to L) knee noted, changed per WOC yesterday. 1:1 sitter. Plan to go back to [facility] ? Reposition as needed. Crush pills in pudidng or applesause. Follow up: Monitor agitation
[2016-11-04 05:50] LABS: ALBUMIN 2.8 gm/dL (3.5-5.0); ANION GAP 11.5 (10.0-19.0); CALCIUM 8.6 mg/dL (8.5-10.5); CREATININE 1.5 mg/dL (0.6-1.3); MAGNESIUM 1.7 mg/dL (1.3-2.6); PHOSPHORUS 3.6 mg/dL (2.5-4.9); POTASSIUM 3.5 mMol/L (3.7-5.1)
--- NOTE | 2016-11-04 13:34 | NUR ---
Phone call to Meron Supervisor Cartography at [facility] at [phone] ext [phone] at 1335 today. She states that they have sent out consents to the 4 individuals that they have to move, but have only gotten one consent back at this time. She states they are not able to move Arya back home until all the consents are returned. She also states they have the hospital bed ordered, but that will not be at the facility until tomorrow. She then said that they will need to paint the room that Arya is to move into, but said she might be able to get that done today. Meron will be out all day tomorrow due to a in the family, but she assured me that the staff at [facility] will be keeping her up to date on the progress being made to get Arya back there on Wednesday. She has my direct line in her cell phone and states she will call me as soon as she has more information to share. Will wait to hear from her, but at this time it looks like Arya will not transfer back to [facility] until Wednesday.
--- NOTE | 2016-11-04 17:00 | NUR ---
Significant Event: Patient took all of his PO meds this morning but the luquids ones. Was cooperative this morning but became increasingly agitated this afternoon. Haldol and Ativan x1. Patient attempting to get out of chair and trying to hit the nursing staff. Screaming out stating he wants to go home. Impulsive at times. Accucheck this morning was 70, recheck as 86. Did not care too much for lunch but had a good breakfast. Up with 2PA. Walked to the bathroom this morning and did well. Needed cueing a little with the left leg. Port to the right chest- will be starting fluids x1 liter. VSS and on RA. Daily weight. I/O. Likes soda. Dressing to the left knee- intact, was changed yesterday by wound nurse. Denies pain today. Resting comfortably in the chair at this time. 1:1 sitter continues.
--- NOTE | 2016-11-05 02:56 | NUR ---
Significant Event: Pt alert and oriented. confused and irritable. will yell out at times but has been easily calmed down so far this shift. right chest port. LR @ 125. took most of PO meds. 1:1 sitter. necter thick liquids and pureed diet. ACHS accuchecks. 2 assist. tuba grib on during the day. VSS. slept most of the shift. can be impulsive and cried out multiple time" I Want to go home". pills crushed in pudding. possible back to [facility] wednesday. Follow up:
[2016-11-05 05:58] LABS: ANION GAP 8.4 (10.0-19.0); BLOOD UREA NITROGEN 13 mg/dL (6-24); CHLORIDE 105 mMol/L (96-110); CO2 35 mMol/L (22-32); CREATININE 1.3 mg/dL (0.6-1.3); ESTIMATED GFR (MDRD EQUATION) > 60; POTASSIUM 3.4 mMol/L (3.7-5.1); SODIUM 145 mMol/L (135-145)
--- NOTE | 2016-11-05 13:28 | NUR ---
Phone call from Jannie with Dr. Del Cid this morning wanting an update on the status of placement. I informed Jannie that [facility] has accepted patient back but they are transferring him to a new housing unit and they have to move other residents out of the unit before patient can return there. I let her know that as of my conversation with Meron, Assistance Director at [facility] yesterday they are still hoping to be able to have patient return to them tomorrow. I let her know that I would be following up with [facility] this afternoon to see how they are doing with moving patient's around and if they are able to accept patient back tomorrow.
--- NOTE | 2016-11-05 16:26 | NUR ---
I placed a phone call to [facility] at 1430 today to inquire about the plans for Danial to return there tomorrow. Work Car Operator Meron is out of the office today, so I asked to talk to Heather, nurse. Heather was not in so they had me speak to Marimar one of the nurses. I told Marimar that I was calling to see how they are doing with the plans for Arya to return to them tomorrow. Marimar states that Arya is not coming back tomorrow, they were told that he is coming on Wednesday. I told Marimar that according to my conversation with Meron on Wednesday she stated the plan was for Arya to return to them on Wednesday, but Marimar said her staff was told Wednesday. I tried to call Meron on her [employer] cell phone, but had to leave her a message. As of 1631 I have not heard back from her. I will contact Meron tomorrow to confirm plans for Arya to transfer back to [facility]. I spoke to Licensed Nuclear Operator Mónica Phillips and let her know what has transpired with my conversations with [facility] today and if they state they cannot take Arya until Wednesday, I will contact the Director and discuss with that individual.
--- NOTE | 2016-11-05 17:13 | NUR ---
Significant Event:Is A/O.Still 1:1 sitter.Has Rt.chest port.IV flds stopped at 0850.Is eating & drinking well.Has voided & had a stool.Had haldol 2mg IV at 1147.Also serequel was increased.Has been up with walker & 1-2 assists.Is to probably go home tomorrow. Follow up:
--- NOTE | 2016-11-06 05:31 | NUR ---
Significant Event: Pt remains 1:1 sitter. Has been mostly cooperative with cares, tried to refuse HS meds as he was sleeping, with little encouragement pt did take. Did sleep in chair. Port to right chest saline locked with good blood return. Nurse draw this morning Complete. Crush meds. Tubigrib off at hs and will need on in am. Prob discharge back to [facility] today. Follow up: Please call his mom if discharge takes place.
[2016-11-06 05:51] LABS: ANION GAP 12.3 (10.0-19.0); BLOOD UREA NITROGEN 9 mg/dL (6-24); CALCIUM 7.9 mg/dL (8.5-10.5); CHLORIDE 110 mMol/L (96-110); CO2 29 mMol/L (22-32); CREATININE 1.2 mg/dL (0.6-1.3); ESTIMATED GFR (MDRD EQUATION) > 60; POTASSIUM 4.3 mMol/L (3.7-5.1)
[2016-11-06 05:53] LABS: SODIUM 147 mMol/L (135-145)
--- NOTE | 2016-11-06 09:56 | NUR ---
Placed a phone call to Meron at [facility] at 0745 today ([phone] ext [phone]) and left her a voice mail asking for her to contact me with the time that they will be here to transfer Arya back to [facility]. I placed a call to Arya's mom, Taylor [phone], to see if she has been notified when Arya will be returning to [facility] and she states she has not heard from [facility] since Wednesday. I placed a second phone call to Meron at 0948 because I had not heard from her. I spoke to Meron and she informed me that she has a meeting scheduled with Arya's new housing unit at 1000 and that meeting will take approximately one hour. She informed me that last evening in one of the other housing units there was a situation that occurred making it necessary for them to have to move individuals to different housing units. In the move one of the other residents had to be moved into the room they had established for Arya. Meron said to me that because of the situation that occurred all of these moves will be permanent moves and since they are 96% Medicaid funded they have not notify the state of these moves and get state approval. Meron states that she has a meeting with Monique Prieto with [facility] after she meets at the housing unit. I actually think she is meeting with Vi Prieto with [facility]. I will place a call to Vi Prieto and see if she can give me any information and assistance with getting Arya back to [facility].
--- NOTE | 2016-11-06 13:55 | NUR ---
A - NUT F/U. UNABLE TO DC HOME TODAY. 1:1 SITTER. LABS: ACCUCHECK WNL->300, NA 147, ALB 2.8. MEDS: LEVEMIR, LR, SSI, KCL, FEOSOL, PREVACID, BOWEL/NAUSEA. 4/5 WT 186#, /8 WT 234# - DOWN 48# (20.5%) x 1 MONTH. TF RECS HAD BEEN MADE MULTIPLE TIMES. DIET: PUREED, NECTAR LIQUIDS. INTAKE: REF-100%, AVG ~47% - IMPROVING. MAGIC CUP TID NEEDS: [id number] KCAL, 106-127 G PRO D - INADEQUATE NUTRIENT INTAKE R/T DECREASED APPETITE AEB INTAKE RECORD. I - GOAL FOR INCREASED ORAL INTAKE. WILL CONTINUE MAGIC CUP TID WILL ADD ENSURE PUDDING @ L&D. M/E - WILL MONITOR INTAKE AND WT F/U IN 4-5 DAYS.
--- NOTE | 2016-11-06 19:17 | NUR ---
Significant Event: patient up to chair, stood at bedside with 2 assist and use of walker. dressing to l) knee changed this am, and tubigrip stocking applied to l) lower leg. denied pain when asked. accuchecks 81, 149, and 235. patient had haldol 2mg iv at 1617. remains 1:1 observation. r) chest port, flushes well/with blood return. taking fluids well, good appetite. Follow up:
--- NOTE | 2016-11-07 04:09 | NUR ---
ADMITTED FOR LEFT KNEE CELLUTITIS, MMR AND RESIDES AT [facility], 1:1 SITTER AT ALL TIMES AND PATIENT CAN BE VERY UNCOOPERATIVE AND PHYSICAL AND WAS GIVEN HALODOL IVP LD@1830, REFUSES ALOT OF MEDICATIONS, CRUSH ALL PILLS AND PLACE IN APPLESAUCE, PUREED DIET WITH NECTAR LIQUIDS AND 1:1 ASSIST FOR FEEDING. RIGHT SUBCLAVIAN PORTACATH ACCESSED AND WILL CHANGE NEEDLE OUT THIS AM AFTER OBTAINING LABS. BLOOD SUGARDS AC/HS AND @2100 WAS 275 AND GIVEN SS INSULIN ALONG WITH SCHEDULED LEVIMIR, NO SCDS BUT DOES GET LOVENOX SHOTS. INC OF B&B AT TIMES BUT DOES REQUEST THE BSC WHEN ABLE.
[2016-11-07 05:26] LABS: ANION GAP 11.2 (10.0-19.0); BLOOD UREA NITROGEN 11 mg/dL (6-24); CALCIUM 7.9 mg/dL (8.5-10.5); CHLORIDE 107 mMol/L (96-110); CO2 31 mMol/L (22-32); CREATININE 1.2 mg/dL (0.6-1.3); ESTIMATED GFR (MDRD EQUATION) > 60; POTASSIUM 4.2 mMol/L (3.7-5.1); SODIUM 145 mMol/L (135-145)
--- NOTE | 2016-11-07 16:06 | NUR ---
Significant Event: Patient agitated throughout the day. Refused to take meds until about 1230 nurse was able to get some of them down patient. Patient has been attempting to hit, kick, bite, scratch. Someone told patient that he could be dismissed on Wednesday and patient upset and wanting to go to [facility]. Haldol given times 3--last at 1145 and patient has had ativan twice--last at 1140. Patient has slept some since about 1300 but will occasionally still wake up and yell, but has then fallen back to sleep. Tried calling patient's mother but this was unsuccessful as all it did was upset his mom that she couldn't calm him down. She had to work today and couldn't come up to see patient. Accuchecks have been 86, and 181 so far today. Jessie held as patient would not let nurse give it. Follow up: Continue to monitor.
--- NOTE | 2016-11-08 05:25 | NUR ---
Significant Event: PATIENT AGITATED AT TIMES. HAVE GIVEN HALDOL X1 LAST AT 0436. PATIENT CONTINUES TO TRY TO KICK, HIT, BITE AT TIMES. WILL YELL OUT FREQUENTLY. DID SLEEP FROM MAJORITY OF SHIFT. UNABLE TO GIVE HS PO MEDS DUE TO PATIENT BEING TOO SLEEPY. AT THIS TIME PORT TO R) CHEST HAS NO BLOOD RETURN, WILL ATTEMPT TO PLACE NEW PORT NEEDLE WHEN PATIENT IS CALMER. INCONTINENT OF BOTH BLADDER AND BOWEL. REMAINS 1:1 OBSERVATION. UP IN RECLINER FOR MOST OF SHIFT. Follow up:
[2016-11-08 06:19] LABS: BASOPHIL # 0.1 K/uL (0.0-0.2); BASOPHIL % 0.7 %; EOSINOPHIL # 0.4 K/uL (0.0-0.5); EOSINOPHIL % 3.1 %; HEMATOCRIT 33.1 % (37.0-53.0); HEMOGLOBIN 10.2 g/dL (12.0-17.0); IMMATURE GRANULOCYTE # 0.1 K/uL (0.0-0.3); IMMATURE GRANULOCYTE % 0.4 %; LYMPHOCYTE # 2.7 K/uL (0.8-4.0); LYMPHOCYTE % 20.5 %; MCH 27.3 pg (27.0-34.0); MCHC 30.8 gm/dL (32.0-36.5); MCV 88.7 fl (83.0-98.0); MONOCYTE # 1.6 K/uL (0.0-1.0); NEUTROPHIL # (ANC) 8.4 K/uL (1.4-9.0); NEUTROPHIL % 63.3 %; NRBC % 0 /100WBC (0-0.00); PLATELET COUNT 137 K/uL (150-450); RBC 3.73 M/uL (4.00-6.00); RDW-CV 15.6 % (11.9-14.6); WBC 13.2 K/uL (4.0-11.0)
[2016-11-08 06:24] LABS: ANION GAP 14.2 (10.0-19.0); BLOOD UREA NITROGEN 11 mg/dL (6-24); CALCIUM 7.9 mg/dL (8.5-10.5); CHLORIDE 101 mMol/L (96-110); CO2 27 mMol/L (22-32); CREATININE 1.3 mg/dL (0.6-1.3); ESTIMATED GFR (MDRD EQUATION) > 60; POTASSIUM 4.2 mMol/L (3.7-5.1); SODIUM 138 mMol/L (135-145)
[2016-11-08 13:01] LABS: BILIRUBIN URINE NEGATIVE (NEGATIVE); BLOOD URINE NEGATIVE /UL (NEGATIVE); COLOR URINE STRAW (YELLOW); GLUCOSE URINE NEGATIVE (NEGATIVE); KETONE URINE NEGATIVE (NEGATIVE); LEUKOCYTES URINE 25 /UL (NEGATIVE); NITRITE URINE NEGATIVE (NEGATIVE); PROTEIN URINE NEGATIVE (NEGATIVE); TURBIDITY URINE CLEAR (CLEAR); UROBILINOGEN URINE NORMAL (NORMAL)
[2016-11-08 13:13] LABS: RBC URINE NEGATIVE #/HPF (NEGATIVE); WBC URINE RARE #/HPF (NEGATIVE)
[2016-11-08 13:14] LABS: BACTERIA URINE NEGATIVE (NEGATIVE); EPITHELIAL URINE RARE #/HPF (NEGATIVE)
--- NOTE | 2016-11-08 18:30 | NUR ---
Significant Event: Patient has been agitated for a large portion of the day. Ativan given times 3 at 0711, 1230, and 1649. Benadryl given times 2 at 0930 and 1728. Haldol given at 0900 and 1327. Zyprexa 10 mg IM was given as a one time order at 1003. Patient also had an extra 50 mg of seroquel at 1057. Patient has been agitated all day. Yells at staff using swear words at times. Have spent a large portion of the day holding patient's hands/feet as patient trying to hit, kick and bite staff and when staff does let go patient tries to attack nursing again within seconds of letting go. Patient also held still as he was trying to throw himself out of the chair. Did put patient back in bed as he was refusing to stay in the chair. Patient then continued to kick and tried to get out of bed. As patient was on a high/low bed we had the bed in low position and rubber grippered socks on but still needed to make sure that patient didn't hit his head trying to get out of bed. Patient would grab anything in his reach and try to either hit staff or throw it at staff. Patient continually saying he wanted to go home or he wanted to talk to his mom. Patient's mom did come up and visit and was calm during her visit and was able to sleep for a while after she left, but then when patient woke back up patient again continued with behaviors and yelling he wanted to go home and that he wanted to see his mom. Did remind patient over and over not to hit staff, that his mom had come up to see him and then had to go back home, and that the doctor said patient had an infection in his lungs and we had to cure that before we sent him home. Reminders fell on deaf ears. Did offer patient sips of pop and breakfast and lunch, but other than a few bites of ice cream and about 150 ml of pop patient refused and did throw the rest of the can at nurse and missed. Right chest port still accessed and for now has lactated ringers infusing at 125 ml/hour for 1.5 liters. Currently first liter is still infusing and patient will need 500 ml more after first liter is complete. Zosyn and bactrim started on patient for infection. Seroquel dose increased to 100 mg PO [id number]. Follow up: Continue to monitor. Continues on 1:1 supervision.
[2016-11-09 04:49] LABS: BICARBONATE 32.8 mmol/L (18.0-23.0); PCO2 53 mmHg (35-45); PO2 98 mmHg (80-90)
[2016-11-09 04:55] LABS: ANION GAP 11.9 (10.0-19.0); CALCIUM 7.9 mg/dL (8.5-10.5); CREATININE 1.4 mg/dL (0.6-1.3); POTASSIUM 3.9 mMol/L (3.7-5.1)
[2016-11-09 05:02] LABS: BASOPHIL # 0.1 K/uL (0.0-0.2); BASOPHIL % 0.6 %; EOSINOPHIL # 0.6 K/uL (0.0-0.5); EOSINOPHIL % 3.9 %; HEMATOCRIT 32.3 % (37.0-53.0); HEMOGLOBIN 10.2 g/dL (12.0-17.0); IMMATURE GRANULOCYTE # 0.1 K/uL (0.0-0.3); IMMATURE GRANULOCYTE % 0.3 %; LYMPHOCYTE # 3.7 K/uL (0.8-4.0); LYMPHOCYTE % 22.6 %; MCH 28.1 pg (27.0-34.0); MCHC 31.6 gm/dL (32.0-36.5); MONOCYTE # 1.3 K/uL (0.0-1.0); MONOCYTE % 8.2 %; MPV 12.4 fl (9.4-12.4); NEUTROPHIL # (ANC) 10.5 K/uL (1.4-9.0); NEUTROPHIL % 64.4 %; NRBC % 0 /100WBC (0-0.00); PLATELET COUNT 147 K/uL (150-450); RBC 3.63 M/uL (4.00-6.00); RDW-CV 15.3 % (11.9-14.6)
[2016-11-09 05:03] LABS: WBC 16.3 K/uL (4.0-11.0)
--- NOTE | 2016-11-09 06:57 | NUR ---
PATIENT TOOK HS MEDS WITHOUT DIFFICULTY WITH SOME COUGHING NOTED WITH LIQUIDS. AROUND 2300, PATIENT WAS ASLEEP AND TOOK VITALS. PATIENT RR WAS IN 30'S. O2 SATS WERE IN THE 70'S. TRIED PLACING O2 PER NASAL CANNULA BUT SATS WOULD NOT COME UP MUCH AND PLACED ON SIMPLE MASK AT 6 LITERS WHICH IMPROVED SATS INTO THE 90'S. TEMP AT THAT TIME WAS 100.0 TYMPANIC. MONITORED VITALS FREQUENTLY. SATS REMAINED IN 90'S ON 6L PER SIMPLE MASK BUT WOULD DROP INTO THE 70'S WHILE ON ROOMAIR. LAST TEMP WAS 97.7 TYMPANIC. NOTIFIED MD WITH CONCERNS ABOUT RESPIRATORY STATUS. [facility]. HAD RT COME AND LOOK AT PATIENT. TRIED DEEP NASAL SUCTION. OBTAINED ABG'S. RT DID RSS. STARTED ON RT TREATMENTS. PHARMACY TO DOSE VANCO. TRANSFER TO PCU.
--- NOTE | 2016-11-09 07:12 | NUR ---
Significant Event: PATIENT REMAINED 1:1 FOR SAFETY. PATIENT WAS ALERT AT START OF SHIFT, TOOK HS MED WITH APPLESAUCE. DID SEEM TO COUGH WITH THICKENED LIQUIDS. WHILE PATIENT WAS ASLEEP AROUND 2300, TOOK VITALS AND NOTED THAT PATIENT RR WAS IN 30'S AND SATS IN 70'S ON ROOMAIR. TRIED NASAL CANNULA WITH LITTLE IMPROVEMENT OF SATS; PLACED ON SIMPLE MASK AND SATS UP INTO 90'S. LOW GRADE TEMP MAX OF 100.0 AND CAME DOWN ON ITS OWN AND WITH COOL ROOM. B/P STABLE. KEPT PATIENT ON SIMPLE MASK DURING REMAINDER OF SHIFT, SATS WOULD DROP INTO 70'S IF PATIENT WOULD TAKE OFF AND BE ON ROOMAIR. LUNG SOUNDS ARE COARSE TO FINE CRACKLES ESPECIALLY ON RIGHT SIDE TO DIMINISHED THROUGHOUT. PATIENT IS A MOUTH BREATHER. DX WITH PNEUMONIA YESTERDAY. ON ZOSYN AND TO START VANCO. ASKED RT TO SEE PATIENT; TRIED DEEP NASAL SUCTION-NOTHING OUT. OBTAINED ABG'S. STARTED ON RT TREATMENTS. LABS DRAWN AND MD NOTIFIED OF LABS. HAS PORT TO R) CHEST WITH GOOD BLOOD RETURN. TRANSFER TO PCU. PATIENT IS A MOSACIC PATIENT. MULTIPLE BEHAVIOR ISSUES. WILL TRY TO HIT, KICK, BITE. MOST OF THIS SHIFT, PATIENT HAS BEEN LETHARGIC-NOT HIMSELF. Follow up:
--- NOTE | 2016-11-09 15:59 | NUR ---
Patient was transferred to PCU over the weekend. I went to the floor at 0800 to see patient. He was sleeping at the time of my arrival. I let his 1:1 sitter and nurse, Asa, RN know that he likes Evelina Partgeovani and the CD was in his bag of belongings. I also let them know that patient likes to have someone sing to him or with him so these are things they might use to help him calm down. I placed a call to Meron at [facility] at 0850 today and informed her that patient was transferred and he is not medically cleared for discharge at this time. I asked her to confirm with me that they have room available for him to return to [facility] once he is medically cleared and she states that yes they have a room and were prepared to take him today. I went to the floor to meet with patient at 1345 and he was sleeping. I spoke to Dr. Hernandez about everything that has been done during patient's hospital stay to get him back to [facility]. Dr. Hernandez reviewed patient's chest xray and record and states he is not medically cleared for discharge at this time. I shared with him that [facility] is planning on taking patient back once he is stable. Will continue to follow.
--- NOTE | 2016-11-09 17:30 | NUR ---
Significant Event: Drowsy. Answers orientation questions appropriately. Repeats phrases, wants to go home. Follows most commands. Pureed diet, nectar thickened liquids, crushed meds. VSS, afebrile. Titrated to 1 L O2. Lorazepam given once.
[2016-11-10 03:53] LABS: ALBUMIN 2.5 gm/dL (3.5-5.0); ANION GAP 11.8 (10.0-19.0); CALCIUM 8.1 mg/dL (8.5-10.5); CREATININE 1.4 mg/dL (0.6-1.3); MAGNESIUM 1.5 mg/dL (1.3-2.6); PHOSPHORUS 3.7 mg/dL (2.5-4.9); POTASSIUM 3.8 mMol/L (3.7-5.1)
--- NOTE | 2016-11-10 04:11 | NUR ---
Significant Event: PATIENT DISORIENTED TO TIME AND FORGETFUL. AGITATED, COMBATIVE, AND UNCOOPERATIVE AT BEGINNING OF SHIFT. IVP HALDOL X1. SINCE THEN PATIENT WOKE UP ONCE AND WAS COOPERATIVE AND CALM. VSS. HR 70'S. SBP 130-140'S. AFEBRILE. 02 SATS IN LOW TO MID 90'S BETWEEN RA AND 1L 02 PER NC. NO C/O PAIN. LUNGS SLIGHTLY COARSE WITH CRACKLES TO RIGHT BASE AND LEFT SIDE CLEAR/DIM TO DIM. UP WITH HAVE 2A. BOWELS ACTIVE. SMALL, SOFT, INCONTINENT BM. VOIDS PER URINAL BUT INCONTINENT AT TIMES. LEFT KNEE ALEVYN DRESSING C/D/I. SOME REDNESS AROUND AREA. RIGHT CHEST PORT WITH NS AT TKO AND INTERMITTENT IV ABX. UNABLE TO ACQUIRE BED WEIGHT. BED NEEDS ZEROED. ON ACHS ACCUCHECKS. PATIENT COUGHS WHEN DRINKING FLUIDS QUICKLY. NEEDS ENCOURAGEMENT TO DRINK SIPS AND SLOWLY. Follow up: CONTINUE TO MONITOR PER PLAN OF CARE.
[2016-11-10 04:30] LABS: BASOPHIL # 0.1 K/uL (0.0-0.2); BASOPHIL % 0.5 %; EOSINOPHIL # 0.5 K/uL (0.0-0.5); EOSINOPHIL % 4.1 %; HEMATOCRIT 33.7 % (37.0-53.0); HEMOGLOBIN 10.3 g/dL (12.0-17.0); IMMATURE GRANULOCYTE % 0.3 %; LYMPHOCYTE # 2.6 K/uL (0.8-4.0); LYMPHOCYTE % 21.5 %; MCH 27.2 pg (27.0-34.0); MCHC 30.6 gm/dL (32.0-36.5); MCV 89.2 fl (83.0-98.0); MONOCYTE # 1.4 K/uL (0.0-1.0); MONOCYTE % 11.3 %; NEUTROPHIL # (ANC) 7.5 K/uL (1.4-9.0); NEUTROPHIL % 62.3 %; NRBC % 0 /100WBC (0-0.00); PLATELET COUNT 166 K/uL (150-450); RBC 3.78 M/uL (4.00-6.00); RDW-CV 14.8 % (11.9-14.6)
--- NOTE | 2016-11-10 09:15 | NUR ---
A - NUTRITION F/U. 1:1 SITTER. GLU 177, BUN/PBX MANAGER 11/1.4, ALB 2.5, WBC 12.0. DIET: PUREE NECTAR THICK. INTAKE REFUSED TO 75% BUT AVERAGING 23%. TF RECS MADE, BUT NOT A GREAT OPTION D/T PT'S MENTAL STATUS. PT IS OFFERED MULTIPLE SUPPLEMENTS. D - INADEQUATE ORAL INTAKE R/T DIFFICULTY SWALLOWING AEB INTAKE RECORD. I - GOAL: 50% INTAKE BY DISMISSAL. M/E - PT OFFERED APPROPRIATE SUPPLEMENTS AND TF RECS MADE ON SEVERAL OCCASSIONS. PLEASE CONSULT IF FURTHER INTERVETION DESIRED. WILL ASSIST NEEDED.
--- NOTE | 2016-11-10 13:41 | NUR ---
1150 Phone call received from Piedad [employer] TECHNICIAN for patient. She states that they are trying patient on RA and if he is able to go one hour on RA then Dr. Hernandez states he could be discharged. She asks me to call [facility] to see if they can pick patient up this afternoon. [facility] will not make a decision until patient has been on RA for the one hour. They also have concerns whether or not he is medically stable if we just took him off the o2. I contacted Piedad at 1330 to see how Arya has done on RA and she states he has remained off of o2, but he has now had a critical BS level in the 400's. Piedad is going to recheck it soon, but wants to know if [facility] will take him back with his BS this high. I told Piedad and Barbara that [facility] will not take him back with that high of a BS. I met with Arya and he states he wants to go home. I told him that he cannot go home today because his BS is to high, but that I am going to call Zoe at [facility] to see if he can go home tomorrow. Arya was okay with this. He also was asking for a diet pepsi and the 1:1 sitter said that they have called nutrition and they are to be bringing him a diet pepsi. I will contact [facility] to see if they have PT that comes into to work with any of the residents, if not then I will ask Dr. Hernandez for a Home Health referral for PT services at [facility]. Will continue to follow.
--- NOTE | 2016-11-10 16:37 | NUR ---
Significant Event: Disorietent to time per basline. VSS, weanened down to room air. Patient was going to be discharged per MD but had critical glucose of 438. 10units of Novolog givenx1 and levemir changed to 15units in AM and 20units in PM and 7units with meals. Possible discharge tomorrow.
--- NOTE | 2016-11-11 07:06 | NUR ---
Significant Event: Patient alert and oriented to person and place. Not to time. Calm and cooperative this shift. No agitation or combativeness. Drowsy. Slept most of the shift. Vital signs stable. On room air. HS accucheck 226. Insulin per sliding scale given and scheduled Levamir. No C/O pain. Up with 2 assist. Voids per urinal. No incontinence this shift. No BM. Left knee Alevyn dressing C/D/I. Right chest port saline locked. Follow up: [facility] at 1100 today.
[2016-11-11 09:39] LABS: BASOPHIL # 0.1 K/uL (0.0-0.2); BASOPHIL % 0.8 %; EOSINOPHIL # 0.7 K/uL (0.0-0.5); EOSINOPHIL % 9.5 %; HEMATOCRIT 35.2 % (37.0-53.0); HEMOGLOBIN 10.6 g/dL (12.0-17.0); IMMATURE GRANULOCYTE % 0.1 %; LYMPHOCYTE # 2.3 K/uL (0.8-4.0); LYMPHOCYTE % 32.3 %; MCH 26.8 pg (27.0-34.0); MCHC 30.1 gm/dL (32.0-36.5); MCV 89.1 fl (83.0-98.0); MONOCYTE # 0.6 K/uL (0.0-1.0); MONOCYTE % 7.8 %; MPV 12.5 fl (9.4-12.4); NEUTROPHIL # (ANC) 3.6 K/uL (1.4-9.0); NEUTROPHIL % 49.5 %; NRBC % 0 /100WBC (0-0.00); PLATELET COUNT 175 K/uL (150-450); RBC 3.95 M/uL (4.00-6.00); RDW-CV 14.6 % (11.9-14.6); WBC 7.2 K/uL (4.0-11.0)
[2016-11-11 09:51] LABS: ALBUMIN 2.4 gm/dL (3.5-5.0); ANION GAP 10.9 (10.0-19.0); BLOOD UREA NITROGEN 10 mg/dL (6-24); CALCIUM 8.3 mg/dL (8.5-10.5); CHLORIDE 107 mMol/L (96-110); CO2 30 mMol/L (22-32); CREATININE 1.2 mg/dL (0.6-1.3); ESTIMATED GFR (MDRD EQUATION) > 60; MAGNESIUM 1.6 mg/dL (1.3-2.6); PHOSPHORUS 3.3 mg/dL (2.5-4.9); POTASSIUM 3.9 mMol/L (3.7-5.1); SODIUM 144 mMol/L (135-145)
--- NOTE | 2016-11-11 13:52 | NUR ---
Came to the floor at 0905 today to check on Arya and see if the plan was still to discharge to [facility] today at 1100. Spoke to his nurse Brandee RN and asked what his most recent BS reading was. She reports that she checked it 3 times and one was 45, the next two were in the 150's and 170's. She also tole me that Arya walked 30 feet with therapy today. I spoke to Pat with PT and he said that he did walk 30 feet with minimal assistance. I informed patient's nurse Brandee that I was going to talk to Dr. Hernandez about keeping patient one more day. With his BS being so high yesterday, just starting to walk for the first time in a number of days, and the sound of his cough, I am just concerned that [facility] will be sending him right back to the hospital. Brandee states that he is coughing because she is encouraging him to cough and that coughing is good for him right now. I placed a phone call to Meron at [facility] at 1000 and informed her the plan is still to discharge to at 1100 today. I returned to U at [address] Hernandez, Eleni, and Brandee. I was informed that we were going to hold off on his discharge for now, because he is very tired from his walk this morning and Dr. Hernandez is going to give him a one time dose of Lasix. I explained to Dr. Hernandez that I felt it was in patient's best interest to stay one more day partly because I am concerned he will be a readmit for [facility] in his current condition. Dr. Hernandez states keeping him one more day will not change what we are doing for him and voiced his concern about the number of days patient has already been here. I contacted [facility] at 1050 and spoke to Marimar. I informed her that we are holding off on discharge until 1400. I will contact her at [address] Hernandez reassess patient. I arrived back on the floor at 1345 and talked to Arya. He states he wants to go home and I explained to him that I will know more once Dr. Hernandez is up to see him. Dr. Hernandez arrived to the floor 1400 and cleared patient for discharge. Phone call placed to Marimar pratt [place] at 1406.
[2016-11-11] MEDS ORDERED: SENSIPAR 30 MG30 MG PO (14:03)
[2016-11-11] MEDS ORDERED: NOVOLOG100 UNIT/M SUB-Q (14:14)
[2016-11-11] MEDS ORDERED: LOPRESSOR25 MG PO (14:19)
[2016-11-11] MEDS ORDERED: SEROQUEL100 MG PO (14:34)
[2016-11-11] MEDS ORDERED: DEPAKENE250 MG PO (14:35)
[2016-11-11] MEDS ORDERED: ALBUTEROL2.5 MG/31 INH (14:37)
[2016-11-11] MEDS ORDERED: AUGMENTIN 875-1 EACH PO (14:43)
--- NOTE | 2016-11-11 15:07 | NUR ---
PATIENT ORIENTED TO PERSON AND PLACE. DISORIENTED TO TIME. CALM AND COOPERATIVE WITH MOST CARES. ONLY YELLS OUT WITH HAVING TO DRINK THICKENED LIQUIDS D/T ASPIRATION PRECAUTIONS. VITALS STABLE. ON ROOM AIR WITH SATS >90%. AMBULATE WITH THERAPY THIS MORNING WALKING A TOTAL OF 30 FEET WITH 2 PERSON ASSIST, WALKER AND GAIT BELT. HAS TAKEN PILLS CRUSHED IN APPLESAUCE WITH CAPSULES WHOLE WITHOUT DIFFICULTY. VOIDS PER URINAL. INCONTINENT AT TIMES. LAST BM 11/10. ALLEVYN DRESSING TO LEFT KNEE LAST CHANGED BY WOUND RN ON 11/10.
[2016-12-21] MEDS ORDERED: LANTUS (IN100 UNIT/M SUB-Q ×2 (15:36→15:37)
[2016-12-21] MEDS ORDERED: SEROQUEL50 MG PO (15:37)
[2016-12-21] MEDS ORDERED: LOPID600 MG PO (15:37)
[2017-01-06] MEDS ORDERED: DEPAKOTE EXTEN500 MG (10:12)
[2017-01-06] MEDS ORDERED: SEROQUEL50 MG (10:30)
== END 2016-11-11 15:30 | DRG 853 ==
LOC: GPCU 21:10 → GMSU 10-18 11:08 → GPCU 11-09 05:46
PROVIDERS: Family Medicine; Internal Medicine; Internal Medicine Geriatric Medicine; Nurse Practitioner Family; Orthopaedic Surgery; Physician Assistant; ADMIT Internal Medicine
PROC: B543ZZA Ultrasonography of Right Jugular Veins, Guidance (ICD-10-PCS; principal; 2016-10-07)
PROC: 05HM33Z Insertion of Infusion Device into Right Internal Jugular Vein, Percutaneous Approach (ICD-10-PCS; principal; 2016-10-07)
PROC: 0MBP0ZZ Excision of Left Knee Bursa and Ligament, Open Approach (ICD-10-PCS; principal; 2016-10-07)
PROC: 0MB Bursae and Ligaments, Excision (ICD-10-PCS; 2016-10-09)
PROC: 3E10X8Z Irrigation of Skin and Mucous Membranes using Irrigating Substance (ICD-10-PCS; 2016-10-10)
PROC: 2W1MX6Z Compression of Left Lower Extremity using Pressure Dressing (ICD-10-PCS; 2016-10-10)
DX: A41.9 Sepsis, unspecified organism (principal); G93.40 Encephalopathy, unspecified; J96.01 Acute respiratory failure with hypoxia; J69.0 Pneumonitis due to inhalation of food and vomit; M00.9 Pyogenic arthritis, unspecified; N17.9 Acute kidney failure, unspecified; E46 Unspecified protein-calorie malnutrition; L03.116 Cellulitis of left lower limb; B37.49 Other urogenital candidiasis; L02.91 Cutaneous abscess, unspecified; F05 Delirium due to known physiological condition; E11.9 Type 2 diabetes mellitus without complications; D72.829 Elevated white blood cell count, unspecified; E21.3 Hyperparathyroidism, unspecified; E87.6 Hypokalemia; F79 Unspecified intellectual disabilities; I10 Essential (primary) hypertension; K75.81 Nonalcoholic steatohepatitis (NASH); M71.162 Other infective bursitis, left knee; F42.9 Obsessive-compulsive disorder, unspecified; F41.9 Anxiety disorder, unspecified
CPT/HCPCS: J0360; J0630; J1200; J1610; J1630; J1642; J1650; J1940; J2060; J2250; J2543; J2997; J3370; J3480; J7030; J7040; J7050; J7060; J7120

== ENCOUNTER 2017-03-01 18:53 | Emergency (ER) | payer MEDICARE, MEDICAID ==
--- NOTE | ~2017-03-01 | ER ---
PATIENT'S NAME: REA ZENDEJAS [facility] AGE: 42 Y [address] ROOM: [place] [id number] LOCATION: [facility] ADMIT DATE: 03/01/2017 ER/Outpatient Report DISCHARGE DATE: 03/01/2017 FAMILY PHYSICIAN: Bo Cota MD ATTENDING PHYSICIAN: Saji Majano Time of Arrival: 1912. Time of Evaluation: 1921. CHIEF COMPLAINT: Right knee swelling. HISTORY OF PRESENT ILLNESS: The patient presents to the ER accompanied by his staff from [facility] in [place]. The patient's staff report he has bumped his knee several times today and staff was concerned as this seemed more swollen than what it had been. He does have an abrasion to the distal right upper leg area. No drainage noted from it. ALLERGIES: ON HIS CHART AND REVIEWED BY ME. MEDICATIONS: On his chart and reviewed by me. PAST MEDICAL HISTORY: Hypoglycemia, glaucoma, COPD, iron deficiency, anxiety, depression, hypertension, type 2 diabetes, reflux, mood disorder, obsessive-compulsive disorder. SOCIAL HISTORY: He presents from [facility] accompanied by staff members. REVIEW OF SYSTEMS: All negative other than those mentioned in the HPI. PHYSICAL EXAMINATION: VITAL SIGNS: He weighed 85.7 kg. Blood pressure was 123/86, pulse is 70, respirations 20, temperature of 96.7 tympanic, O2 saturation was 95% on room air. GENERAL: He is awake, alert, aware of his surroundings. SKIN: His skin is pink, warm, and dry. RESPIRATIONS: Even and unlabored. Lung sounds are clear throughout. HEART: Regular rate and rhythm. EXTREMITIES: He has minimal swelling of the right knee area. Does have an PATIENT'S NAME: REA ZENDEJAS [facility] AGE: 42 Y [address] ROOM: [place] [address] LOCATION: [facility] ADMIT DATE: 03/01/2017 ER/Outpatient Report DISCHARGE DATE: 03/01/2017 FAMILY PHYSICIAN: Bo Cota MD ATTENDING PHYSICIAN: Saji Majano abrasion to the right distal upper leg. DIAGNOSTIC STUDIES: X-ray was completed. No bony abnormality is seen. He does have arthritic changes of the knee noted. IMPRESSION: Contusion to the right knee. PLAN: Home, rest. Ice to the area as patient allows. Continue his current medications. Follow up with his primary provider in the next couple days if symptoms persist. Staff verbalizes understanding. CORINNE GARCIA APRN FOR MD BARRETT JOHNSON/modl /[id number] d: 03/02/17 0055 t: 03/18/17 0549, OUTPATIENT REPORT
[~2017-03-01 18:53] MED LIST changes: +ALBUTEROL2.5 MG/31 INH; +ATIVAN 1 MG1 MG SL; +AUGMENTIN 875-1 EACH PO; +DEPAKENE250 MG PO; +DEPAKOTE EXTEN500 MG; +DEXTROSE 50%50 ML IV; +GLUCAGON 1 MG PE1 MG SUB-Q; +HALDOL5 MG/1 ML IV; +HEPARIN LO IV; +HEPARIN LO10 UNIT/1 IV; +LANTUS (IN100 UNIT/M SUB-Q; +LOPRESSOR25 MG PO; +LORAZEPAM IV; +LORAZEPAM2 MG/1 M1 IV; +LOVENOX 4040 MG/0.4 SUB-Q; +MELATONIN1 MG PO; +NOVOLOG100 UNIT/M SUB-Q; +SALINE IV; +SENSIPAR 30 MG30 MG PO; +SEROQUEL100 MG PO; +SEROQUEL50 MG; +SEROQUEL50 MG PO; +SODIUM CHLORID250 M1 IV; +VANCOMYCIN1 GM IV; +ZOSYN3.375 GM IV
== END 2017-03-01 19:57 | disposition disaster alternative care site (69) ==
LOC: GMED 18:53
DX: S80.01XA Contusion of right knee, initial encounter (principal); S70.311A Abrasion, right thigh, initial encounter; I10 Essential (primary) hypertension; E11.9 Type 2 diabetes mellitus without complications; F41.9 Anxiety disorder, unspecified; F32.9 Major depressive disorder, single episode, unspecified; K21.9 Gastro-esophageal reflux disease without esophagitis; E61.1 Iron deficiency; J44.9 Chronic obstructive pulmonary disease, unspecified; H40.9 Unspecified glaucoma; Z88.8 Allergy status to other drugs, medicaments and biological substances; Z79.2 Long term (current) use of antibiotics; Z79.4 Long term (current) use of insulin; Z79.899 Other long term (current) drug therapy; W22.8XXA Striking against or struck by other objects, initial encounter